=== PATIENT | female | born 1970 | race American Indian/Alaskan Native ===

== ENCOUNTER → 2017-06-29 | Outpatient (CLI) | payer BC, OTHER ==
[~2017-06-29] MED LIST: ASPI-587 PO; CATHETER FLUSH 10 ML SYR IV PRN; CELE50CA PO; CIPR500T78 PO; CTLP20T PO; CYCL10TA45 PO; CYCL10TA9 PO; DICL50TA6 PO; ESTR1TAB24 PO; HYDR-757 PO; HYDR25TA4 PO; HYOS0.1216 PO; IOHEXOL 350 MG/ML 100 ML (OMNIPAQUE 350) VIAL IV ONE; LISI10TA2 PO; NITR100C3 PO; NS 100 ML (IVPB) BAG IV ONE; PHEN200T27 PO; POTA15TA9 PO; PRD20T PO; SERT50TA2 PO; TRIA1CAP4 PO
--- NOTE | 2017-06-29 20:11 | Diagnostic Imaging Report ---
PROCEDURE: CT chest, abdomen, and pelvis with and without contrast. TECHNIQUE: Precontrast images were obtained of the chest, abdomen, and pelvis. Multiple contiguous axial images were obtained through the chest, abdomen, and pelvis after administration of intravenous contrast. INDICATION: Back pain. History of stones. Lung nodule. 100 mL of Omnipaque 350 is administered intravenously. Comparison CT abdomen and pelvis of 03/04/[address] chest of 09/20/2014. FINDINGS: CT chest: The lungs demonstrate no significant consolidation. There are pulmonary nodules up to 6 mm in the peripheral aspect. These appears to be stable from 2015 suggestive of benign etiology. No new nodule is identified. There is no mediastinal mass. There is no mediastinal or hilar or axillary significantly enlarged lymph nodes. The thoracic aorta is normal in caliber. The heart is normal. No pericardial or pleural effusion. The osseous structures appear grossly unremarkable. CT of the abdomen and pelvis: The liver, the spleen, the adrenal glands, and the pancreas appear unremarkable. Cholecystectomy clips are seen. The kidneys have symmetric enhancement and contrast excretion. The unenhanced phase demonstrate multiple nonobstructive stones up to 4 mm in size. No hydronephrosis. Hypodense lesion in the right kidney measuring 9 mm is noted. This is probably a cyst and demonstrate no significant change from 2015. There is no bowel obstruction. No significant free fluid or fluid collection in the abdomen or pelvis is identified. The appendix is normal. There is suggestion of prior hysterectomy. The osseous structures appear grossly unremarkable. IMPRESSION: CT chest: Stable pulmonary nodules up to 6 mm in size in the left lung base without change from 2015 suggestive of scarring. No acute process. CT abdomen and pelvis: Nonobstructive stones in the right kidney up to 4 mm in size. No hydronephrosis. Dictated by: Dictated on workstation # [id number]
== END ==
LOC: RAD 16:24
PROVIDERS: ATTEND Urology
DX: R91.8 Other nonspecific abnormal finding of lung field (principal); N20.0 Calculus of kidney; M54.9 Dorsalgia, unspecified; Z90.49 Acquired absence of other specified parts of digestive tract
CPT/HCPCS: 71270; 74178

== ENCOUNTER 2017-07-22 05:40 | Outpatient (CLI) | payer OTHER ==
[~2017-07-22] VITALS: Ht 154.9 cm; Wt 90.7 kg
[~2017-07-22 05:40] MED LIST changes: -CATHETER FLUSH 10 ML SYR IV PRN; -IOHEXOL 350 MG/ML 100 ML (OMNIPAQUE 350) VIAL IV ONE; -NS 100 ML (IVPB) BAG IV ONE
[2017-07-22] MEDS ORDERED: HYDR25TA4 PO (11:02)
[2017-07-22] MEDS ORDERED: LISI10TA2 PO (11:02)
[2017-07-22] MEDS ORDERED: POTA15TA PO (11:02)
== END 2017-07-22 11:12 ==
LOC: PREOP 05:40
PROVIDERS: ATTEND Urology
DX: Z01.818 Encounter for other preprocedural examination (principal); R32 Unspecified urinary incontinence; N32.81 Overactive bladder

== ENCOUNTER 2017-07-29 05:49 | Day surgery (SDC) | payer OTHER ==
[~2017-07-29] VITALS: Ht 154.9 cm; Wt 90.7 kg
[~2017-07-29 05:49] MED LIST changes: +POTA15TA PO
--- OUTSIDE RECORDS SUMMARY | 2017-07-29 05:53 | XMS REPORT ---
Author Author HUI ARAYA Organization [employer] Address Unknown Phone Unavailable Care Team Providers Care Aircraft Engine Cylinder Mechanic Name Role Phone HUI ARAYA CP Unavailable Allergies No Known Allergies Problems Problem Type Condition Code Onset Dates Condition Status Problem Dysthymic disorder 300.4 Active Problem Essential hypertension, benign 401.1 Active Problem Unspecified myalgia and myositis 729.1 Active Medications Medication Code System Code Instructions Start Date End Date Status Dosage IBU NDC 0 800 MG Orally Three times a day prn October 30, 2014 1 tablet Results No Known Results Summary Purpose [employer]ClinicalWorks Submission
--- OUTSIDE RECORDS SUMMARY | 2017-07-29 05:53 | XMS REPORT ---
Author Author HUI ARAYA Organization [employer] Address Unknown Phone Unavailable Care Team Providers Care Truck Mechanic Name Role Phone HUI ARAYA CP Unavailable Allergies No Known Allergies Problems Problem Type Condition Code Onset Dates Condition Status Problem Dysthymia F34.1 Active Problem Unspecified myalgia and myositis 729.1 Active Problem Essential hypertension I10 Active Assessment Essential hypertension I10 Active Problem Dysthymic disorder 300.4 Active Problem Essential hypertension, benign 401.1 Active Medications No Known Medications Procedures Procedure Coding System Code Date COMPLETE CBC W/AUTO DIFF WBC CPT-4 77944 Aug 16, 2015 LIPID PANEL CPT-4 44053 Aug 16, 2015 ASSAY THYROID STIM HORMONE CPT-4 29278 Aug 16, 2015 VENIPUNCT, ROUTINE* CPT-4 75057 Aug 16, 2015 COMPREHEN METABOLIC PANEL CPT-4 20301 Aug 16, 2015 Results Name Result Date Reference Range Unit Abnormality Flag ROUTINE VENIPUNCTURE Summary Purpose eClinicalWorks Submission
--- OUTSIDE RECORDS SUMMARY | 2017-07-29 05:53 | XMS REPORT ---
Author Author HUI ARAYA Organization [employer] Address Unknown Phone Unavailable Care Team Providers Care Poultryman Name Role Phone HUI ARAYA CP Unavailable Allergies No Known Allergies Problems Problem Type Condition ICD-9 Code Onset Dates Condition Status Problem Dysthymic disorder 300.4 Active Problem Essential hypertension, benign 401.1 Active Problem Unspecified myalgia and myositis 729.1 Active Medications Medication Code System Code Instructions Start Date End Date Status Dosage Sertraline HCl NDC [address]-29 50 MG Orally Once a day Mar 09, 2015 1 tablet IBU NDC 0 800 MG Orally Three times a day prn October 30, 2014 1 tablet Results No Known Results Summary Purpose eClinicalWorks Submission
--- OUTSIDE RECORDS SUMMARY | 2017-07-29 05:53 | XMS REPORT ---
Author Author HUI ARAYA Organization [employer] Address Unknown Phone Unavailable Care Team Providers Care Pineapple Plantation Manager Name Role Phone HUI ARAYA CP Unavailable Allergies No Known Allergies Problems Problem Type Condition Code Onset Dates Condition Status Problem Dysthymia F34.1 Active Problem Unspecified myalgia and myositis 729.1 Active Problem Essential hypertension I10 Active Assessment Elevated liver function tests R79.89 Active Problem Dysthymic disorder 300.4 Active Problem Essential hypertension, benign 401.1 Active Medications No Known Medications Results No Known Results Summary Purpose eClinicalWorks Submission
--- OUTSIDE RECORDS SUMMARY | 2017-07-29 05:53 | XMS REPORT ---
Author Author HUI ARAYA [facility] Address [address] [place] [address] Care Team Providers Care Homicide Detective Name Role Phone ARAYA, HUI Unavailable PROBLEMS Type Condition ICD9-CM Code [id number] Code Onset Dates Condition Status SNOMED Code Problem Essential hypertension, benign 401.1 Active 1098227 Problem Unspecified myalgia and myositis 729.1 Active 983962427 Problem Back spasm M62.830 Active 264511751 Problem Arthritis M19.90 Active 4897966 Problem Essential hypertension I10 Active 46487939 Problem Dysthymic disorder 300.4 Active 17161658 Problem Mixed hyperlipidemia E78.2 Active 767820094 Problem Dysthymia F34.1 Active 33995998 ALLERGIES No Known Allergies SOCIAL HISTORY No smoking Hx information available PLAN OF CARE VITAL SIGNS MEDICATIONS Medication Instructions Dosage Frequency Start Date End Date Duration Status Sertraline HCl 50 mg Orally Once a day. NEEDS APPT BEFORE ANY FURTHER REFILLS 1 tablet Feb, 0 days Active Lisinopril 10 mg Orally Once a day. NEEDS APPT BEFORE ANY FURTHER REFILLS take 1 tablet 0 days Active Estrace 1 MG Orally Once a day. NEEDS APPT BEFORE ANY FURTHER REFILLS 1 tablet 0 days Active RESULTS No Results PROCEDURES No Known procedures IMMUNIZATIONS No Known Immunizations
--- OUTSIDE RECORDS SUMMARY | 2017-07-29 05:53 | XMS REPORT ---
Author Author HUI ARAYA Organization [employer] Address Unknown Phone Unavailable Care Team Providers Care Dental Services Director Name Role Phone HUI ARAYA CP Unavailable Allergies No Known Allergies Problems Problem Type Condition Code Onset Dates Condition Status Problem Dysthymic disorder 300.4 Active Problem Essential hypertension, benign 401.1 Active Problem Unspecified myalgia and myositis 729.1 Active Assessment Essential hypertension, benign 401.1 Active Medications Medication Code System Code Instructions Start Date End Date Status Dosage Lisinopril [facility] [place] [address]-63 10 MG Orally Once a day. NEED APPT PRIOR TO FURTHER REFILLS take 1 tablet Sertraline HCl [facility] [place] [address]-94 50 MG Orally Once a day. NEED APPT PRIOR TO FURTHER REFILLS Mar 09, 2015 1 tablet Estrace [facility] [place] [address]-93 1 MG Orally Once a day. NEED APPT PRIOR TO FURTHER REFILLS 1 tablet Results No Known Results Summary Purpose [employer] Submission
--- OUTSIDE RECORDS SUMMARY | 2017-07-29 05:53 | XMS REPORT ---
Author Author HUI ARAYA Organization [employer] Address Unknown Phone Unavailable Care Team Providers Care Hand Filer Balance Wheel Name Role Phone HUI ARAYA CP Unavailable Allergies, Adverse Reactions, Alerts Substance Reaction Event Type Benadryl Info Not Available Drug Allergy Problems Problem Type Condition Code Onset Dates Condition Status Problem Dysthymia F34.1 Active Problem Unspecified myalgia and myositis 729.1 Active Problem Essential hypertension I10 Active Assessment Essential hypertension I10 Active Assessment Dysthymia F34.1 Active Problem Dysthymic disorder 300.4 Active Problem Essential hypertension, benign 401.1 Active Medications Medication Code System Code Instructions Start Date End Date Status Dosage Lisinopril [facility] [address]-28 10 MG Orally Once a day. take 1 tablet Potassium Citrate NDC 0 15 mEq oral 2 times a day 2 tab Sertraline HCl [facility] [address]-86 50 MG Orally Once a day. Mar 09, 2015 1 tablet IBU NDC 0 800 MG Orally Three times a day prn October 30, 2014 1 tablet Estrace [facility] [address]-18 1 MG Orally Once a day. NEED APPT PRIOR TO FURTHER REFILLS 1 tablet Hydrochlorothiazide [facility] [address]-94 25 MG Orally Once a day 1 tablet Procedures Procedure Coding System Code Date Office Visit, Est Pt., Level 3 CPT-4 30668 Aug 14, 2015 Vital Signs Date/Time: Aug 14, 2015 Temperature 96.8 F Weight 201.0 lbs Height 61.5 in BMI 37.36 Index Blood Pressure Diastolic 72 mmHg Blood Pressure Systolic 112 mmHg Cardiac Monitoring Heart Rate 60 bpm Results No Known Results Summary Purpose eClinicalWorks Submission
--- OUTSIDE RECORDS SUMMARY | 2017-07-29 05:53 | XMS REPORT ---
Author Author HUI ARAYA Organization [employer] Address Unknown Phone Unavailable Care Team Providers Care Auto Body Service Mechanic Name Role Phone HUI ARAYA CP Unavailable Allergies No Known Allergies Problems Problem Type Condition Code Onset Dates Condition Status Problem Dysthymic disorder 300.4 Active Problem Essential hypertension, benign 401.1 Active Problem Unspecified myalgia and myositis 729.1 Active Medications Medication Code System Code Instructions Start Date End Date Status Dosage Estrace [facility] [address]-95 1 MG Orally Once a day. NEED APPT PRIOR TO FURTHER REFILLS 1 tablet Lisinopril [facility] [address]-79 10 MG Orally Once a day. NEED APPT PRIOR TO FURTHER REFILLS take 1 tablet Results No Known Results Summary Purpose eClinicalWorks Submission
--- OUTSIDE RECORDS SUMMARY | 2017-07-29 05:53 | XMS REPORT | Continuity of Care Document ---
Author Author [facility] Address Unknown Phone Unavailable Allergies Active Description Code Type Severity Reaction Onset Reported/Identified Relationship to Patient Clinical Status Yes Benadryl Drug Allergy N/A N/A 06/01/2014 Yes diphenhydramine [id number] Drug Allergy Mild N/A 07/22/2017 Medications There is no data. Problems Date Dx Coded Attending Type Code Diagnosis Diagnosed By 01/19/2008 HUI ARAYA APRN V05.3 HEPATITIS VIRAL/ALL 01/19/2008 ARAYA HUI GOMEZ V05.3 HEPATITIS VIRAL/ALL 01/19/2008 ARAYA HUI GOMEZ V05.3 HEPATITIS VIRAL/ALL 11/20/2008 HUI ARAYA APRN R 278.00 OBESITY 11/20/2008 ARAYA HUI GOMEZ R 466.0 ACUTE BRONCHITIS 11/20/2008 ARAYA HUI GOMEZ 780.60 fever [as symptom] 11/20/2008 ARAYA HUI GOMEZ R 786.2 cough 11/20/2008 ARAYA HUI GOMEZ R 278.00 OBESITY 11/20/2008 ARAYA HUI GOMEZ R 466.0 ACUTE BRONCHITIS 11/20/2008 ARAYA HUI GOMEZ 780.60 fever [as symptom] 11/20/2008 ARAYA HUI GOMEZ R 786.2 cough 11/20/2008 ARAYA HUI GOMEZ R 278.00 OBESITY 11/20/2008 ARAYA HUI GOMEZ R 466.0 ACUTE BRONCHITIS 11/20/2008 ARAYA HUI GOMEZ R 780.60 fever [as symptom] 11/20/2008 ARAYA HUI GOMEZ R 786.2 cough 01/24/2009 ARAYA HUI GOMEZ 911.4 INSECT BITE NONVENOMOUS OF TRUNK WITHOUT INFECTION 01/24/2009 ARAYA HUI GOMEZ 911.4 INSECT BITE NONVENOMOUS OF TRUNK WITHOUT INFECTION 01/24/2009 HUI ARAYA APRN R 911.4 INSECT BITE NONVENOMOUS OF TRUNK WITHOUT INFECTION 04/09/2014 CANDELARIO DOWNS APRN Ot 592.0 CALCULUS OF KIDNEY 04/11/2014 ETHAN NAPOLES MD Ot 592.0 CALCULUS OF KIDNEY 04/11/2014 ETHAN NAPOLES MD Ot 592.1 CALCULUS OF URETER 04/26/2014 ETHAN NAPOLES MD Ot 592.1 CALCULUS OF URETER 04/26/2014 ETHAN NAPOLES MD Ot V74.8 SCREEN-BACTERIAL DIS NEC 06/01/2014 HUI ARAYA APRN R 300.4 DYSTHYMIC DISORDER 06/01/2014 HUI ARAYA APRN R 401.1 HYPERTENSION, BENIGN ESSENTIAL 06/01/2014 HUI ARAYA APRN R 300.4 DYSTHYMIC DISORDER 06/01/2014 HUI ARAYA APRN R 401.1 HYPERTENSION, BENIGN ESSENTIAL 06/07/2014 ETHAN NAPOLES MD Ot 592.1 06/07/2014 ETHAN NAPOLES MD Ot V67.09 08/28/2014 HUI ARAYA APRN R 729.1 MYALGIA AND MYOSITIS UNSPECIFIED 10/05/2014 Ot 793.19 10/25/2014 CANDELARIO DOWNS APRN Ot 789.00 ABDOMINAL PAIN, UNSPECIFIED SITE 10/25/2014 CANDELARIO DOWNS APRN Ot 848.8 SPRAIN NEC 10/25/2014 CANDELARIO DOWNS APRN Ot E000.8 OTHER EXTERNAL CAUSE STATUS 10/25/2014 CANDELARIO DOWNS APRN Ot E928.9 ACCIDENT NOS 10/25/2014 Ot 793.19 10/30/2014 Ot 793.19 03/04/2016 TERRA FOWLER Ot M54.5 LOW BACK PAIN 03/04/2016 Ot 793.19 OTHER NONSPECIFIC ABNORMAL FINDING OF DEB 03/05/2016 TERRA FOWLER Ot M54.5 LOW BACK PAIN 04/03/2016 Ot 793.19 OTHER NONSPECIFIC ABNORMAL FINDING OF DEB 06/26/2017 ETHAN NAPOLES MD Ot 592.9 URINARY CALCULUS NOS 06/26/2017 ETHAN NAPOLES MD Ot 592.0 CALCULUS OF KIDNEY 06/26/2017 ETHAN NAPOLES MD Ot 592.1 CALCULUS OF URETER 06/26/2017 ETHAN NAPOLES MD, Ot V72.63 PRE-PROCEDURAL LABORATORY EXAMINATION 06/26/2017 ETHAN NAPOLES MD, Ot V72.81 [id number] CARDIOVASCULAR 06/26/2017 ETHAN NAPOLES MD Ot V74.8 SCREEN-BACTERIAL DIS NEC 06/26/2017 ETHAN NAPOLES MD Ot 592.0 CALCULUS OF KIDNEY 06/26/2017 ETHAN NAPOLES MD, Ot V72.84 EXAM PRE-OPERATIVE NOS 06/26/2017 ETHAN NAPOLES MD Ot 793.19 OTHER NONSPECIFIC ABNORMAL FINDING OF DEB 06/26/2017 ETHAN NAPOLES MD Ot 592.0 CALCULUS OF KIDNEY 06/26/2017 ETHAN NAPOLES MD Ot 592.1 CALCULUS OF URETER 06/26/2017 ETHAN NAPOLES MD Ot V45.89 POSTSURGICAL STATES NEC 06/26/2017 ETHAN NAPOLES MD Ot 571.8 CHRONIC LIVER DIS NEC 06/26/2017 ETHAN NAPOLES MD Ot 592.0 CALCULUS OF KIDNEY 06/26/2017 ETHAN NAPOLES MD Ot 793.11 SOLITARY PULMONARY NODULE 06/26/2017 ETHAN NAPOLES MD Ot 592.1 CALCULUS OF URETER 06/26/2017 ETHAN NAPOLES MD Ot V67.09 SURGERY FOLLOW-UP, OTHER SURGERY Procedures There is no data. Results Test Result Range Complete urinalysis with reflex to culture - 03/04/16 14:15 Urine color determination YELLOW NRG Urine clarity determination CLEAR NRG Urine pH measurement by test strip 7 5-9 Specific gravity of urine by test strip 1.015 1.016- 1.022 Urine protein assay by test strip, semi-quantitative NEGATIVE NEGATIVE Urine glucose detection by automated test strip NEGATIVE NEGATIVE Erythrocytes detection in urine sediment by light microscopy NEGATIVE NEGATIVE Urine ketones detection by automated test strip NEGATIVE NEGATIVE Urine nitrite detection by test strip NEGATIVE NEGATIVE Urine total bilirubin detection by test strip NEGATIVE NEGATIVE Urine urobilinogen measurement by automated test strip (mass/volume) NORMAL NORMAL Urine leukocyte esterase detection by dipstick 1+ NEGATIVE Automated urine sediment erythrocyte count by microscopy (number/high power field) RARE NRG Automated urine sediment leukocyte count by microscopy (number/high power field ) RARE NRG Bacteria detection in urine sediment by light microscopy FEW NRG Squamous epithelial cells detection in urine sediment by light microscopy >50 NRG Crystals detection in urine sediment by light microscopy NONE NRG Casts detection in urine sediment by light microscopy NONE NRG Mucus detection in urine sediment by light microscopy NEGATIVE NRG Complete urinalysis with reflex to culture NO NRG Complete blood count (CBC) with automated white blood cell (WBC) differential - 03/04/16 14:45 Blood leukocytes automated count (number/volume) 7.0 10*3/uL 4.3-11.0 Blood erythrocytes automated count (number/volume) 4.26 10*6/uL 4.35-5.85 Venous blood hemoglobin measurement (mass/volume) 13.4 g/dL 11.5-16.0 Blood hematocrit (volume fraction) 41 % 35-52 Automated erythrocyte mean corpuscular volume 96 [foz_us] 80-99 Automated erythrocyte mean corpuscular hemoglobin (mass per erythrocyte) 32 pg 25-34 Automated erythrocyte mean corpuscular hemoglobin concentration measurement ( mass/volume) 33 g/dL 32-36 Automated erythrocyte distribution width ratio 13.2 % 10.0-14.5 Automated blood platelet count (count/volume) 264 10*3/uL 130-400 Automated blood platelet mean volume measurement 11.2 [foz_us] 7.4-10.4 Automated blood neutrophils/100 leukocytes 60 % 42-75 Automated blood lymphocytes/100 leukocytes 31 % 12-44 Blood monocytes/100 leukocytes 7 % 0-12 Automated blood eosinophils/100 leukocytes 1 % 0-10 Automated blood basophils/100 leukocytes 1 % 0-10 Blood neutrophils automated count (number/volume) 4.2 10*3 1.8-7.8 Blood lymphocytes automated count (number/volume) 2.2 10*3 1.0-4.0 Blood monocytes automated count (number/volume) 0.5 10*3 0.0-1.0 Automated eosinophil count 0.1 10*3/uL 0.0-0.3 Automated blood basophil count (count/volume) 0.1 10*3/uL 0.0-0.1 Comprehensive metabolic panel - 03/04/16 14:45 Serum or plasma sodium measurement (moles/volume) 136 mmol/L 135-145 Serum or plasma potassium measurement (moles/volume) 3.6 mmol/L 3.6-5.0 Serum or plasma chloride measurement (moles/volume) 101 mmol/L 98-107 Carbon dioxide 24 mmol/L 21-32 Serum or plasma anion gap determination (moles/volume) 11 mmol/L 5-14 Serum or plasma urea nitrogen measurement (mass/volume) 14 mg/dL 7-18 Serum or plasma creatinine measurement (mass/volume) 0.82 mg/dL 0.60-1.30 Serum or plasma urea nitrogen/creatinine mass ratio 17 NRG Serum or plasma creatinine measurement with calculation of estimated glomerular filtration rate > NRG Serum or plasma glucose measurement (mass/volume) 149 mg/dL 70-105 Serum or plasma calcium measurement (mass/volume) 9.7 mg/dL 8.5-10.1 Serum or plasma total bilirubin measurement (mass/volume) 0.3 mg/dL 0.1-1.0 Serum or plasma alkaline phosphatase measurement (enzymatic activity/volume) 69 U/L 40-136 Serum or plasma aspartate aminotransferase measurement (enzymatic activity/ volume) 43 U/L 5-34 Serum or plasma alanine aminotransferase measurement (enzymatic activity/volume ) 72 U/L 0-55 Serum or plasma protein measurement (mass/volume) 7.0 g/dL 6.4-8.2 Serum or plasma albumin measurement (mass/volume) 4.2 g/dL 3.2-4.5 Encounters ACCT No. Visit Date/Time Discharge Status Pt. Type Provider Facility Loc./Unit Complaint [id number] 08/28/2014 14:41:00 08/28/2014 23:59:59 [facility] Outpatient HUI ARAYA APRN [id number] 06/01/2014 15:03:00 06/01/2014 23:59:59 [facility] Out[facility] HUI ARAYA APRN [id number] 01/24/2009 09:48:00 01/24/2009 23:59:59 [facility] Outpatient HUI ARAYA APRN [id number] 07/22/2017 05:40:00 07/22/2017 11:12:00 DIS Outpatient DONY CABRERA, ETHAN [facility] PREOP MIXED INCONTINENCE, OVERACTIVE BLADDER [id number] 06/29/2017 16:24:00 06/29/2017 23:59:59 C[facility] Outpatient ETHAN NAPOLES MD [facility] RAD H/O STONES,BACK PAIN [id number] 03/04/2016 13:49:00 03/04/2016 16:43:00 DIS Emergency TERRA FOWLER [facility] ER LOW BACK PAIN/NAUSEA [id number] 10/25/2014 13:32:00 10/25/2014 15:45:00 DIS Emergency CANDELARIO DOWNS APRN [facility] ER LEFT SIDED PAIN, HX OF STONES [id number] 05/16/2014 14:01:00 05/16/2014 23:59:59 CLS Outpatient ETHAN NAPOLES MD [facility] RAD RT URETER STONE [id number] 05/05/2014 11:27:00 05/05/2014 23:59:59 CLS Outpatient ETHAN NAPOLES MD [facility] RAD LT FLANK PAIN [id number] 04/26/2014 06:08:00 04/26/2014 11:25:00 DIS Outpatient ETHAN NAPOLES MD [facility] SD RIGHT URETERAL STONE [id number] 04/25/2014 07:23:00 04/25/2014 23:59:59 CLS Outpatient ETHAN NAPOLES MD [facility] PREOP RIGHT URETERAL STONE [id number] 04/24/2014 13:57:00 04/24/2014 23:59:59 CLS Outpatient ETHAN NAPOLES MD [facility] RAD STONES [id number] 04/14/2014 12:14:00 04/14/2014 23:59:59 CLS Outpatient ETHAN NAPOLES MD [facility] RAD CHEST LEISON [id number] 04/11/2014 08:16:00 04/11/2014 13:40:00 DIS Outpatient ETHAN NAPOLES MD [facility] RIGHT RENAL AND URETERAL STONES [id number] 04/10/2014 14:20:00 04/10/2014 23:59:59 CLS Outpatient ETHAN NAPOLES MD [facility] PREOP RIGHT RENAL AND URETERAL STONES [id number] 04/10/2014 12:19:00 04/10/2014 23:59:59 CLS Outpatient ETHAN NAPOLES MD [facility] RAD STONES [id number] 04/09/2014 15:44:00 04/09/2014 18:01:00 DIS Emergency CANDELARIO DOWNS COMMERCIAL LINES ACCOUNT ASSISTANT [facility] ER KIDNEY STONE [id number] 07/29/2017 08:00:00 PEN Preadmit ETHAN NAPOLES MD [facility] SDC MIXED INCONTINENCE, OVERACTIVE BLADDER,ISD [id number] 09/20/2014 10:21:00 Document Registration
[2017-07-29] MEDS ORDERED: cefTRIAXone 1 GM (ROCEPHIN) VIAL ONE (06:36)
[2017-07-29] MEDS ORDERED: FAMOTIDINE 20MG/2ML IV (PEPCID) ONE (06:36)
[2017-07-29] MEDS ORDERED: NS (IVPB) 50 ML ONE (06:36)
[2017-07-29] MEDS ORDERED: ONDANSETRON 4 MG/2 ML (SDV) Z0FRAN ONE (06:56)
[2017-07-29] MEDS ORDERED: proPOfol 200 MG/20 ML (DIPRIVAN) VIAL IV ONE (06:56)
[2017-07-29] MEDS ORDERED: SEVOFLURANE (ULTANE) 15 ML INHAL SOLN ONE ×3 (06:56→08:28)
[2017-07-29] MEDS ORDERED: DEXAMETHASONE 10 MG/ML (DECADRON) 1 ML VIAL ONE (06:56)
[2017-07-29] MEDS ORDERED: LIDOCAINE PF 2% 5 ML (XYLOCAINE) VIAL ONE (06:56)
[2017-07-29] MEDS ORDERED: MIDAZOLAM 2 MG/2 ML (VERSED) VIAL ONE (06:56)
[2017-07-29] MEDS ORDERED: fentaNYL INJECTION 100 MCG/2 ML AMP ONE (06:56)
[2017-07-29] MEDS ORDERED: LACTATED RINGERS 1,000 ML IV PRN (06:57)
[2017-07-29] MEDS ORDERED: FAMOTIDINE 20MG/2ML IV (PEPCID) IV ONE (07:00)
[2017-07-29] MEDS ORDERED: cefTRIAXone 1 GM/NS 50 ML IVPB IV ONE ×2 (07:00)
[2017-07-29] MEDS ORDERED: CYCL5TAB PO (07:00)
[2017-07-29] MEDS ORDERED: CATHETER FLUSH 10 ML SYR IV PRN (07:00)
[2017-07-29] MEDS ORDERED: ESTRADIOL VAGINAL CREAM 42.5 GM (ESTRACE) VG ONE (07:08)
[2017-07-29] MEDS ORDERED: LIDOCAINE/EPI 1%-1:200,000 (XYLOCAINE) 10 ML VIAL ONE (07:08)
[2017-07-29 07:10] VITALS: BP 123/79
--- NOTE | 2017-07-29 07:12 | Progress Note-Pre Operative ---
Pre-Operative Progress Note H&P Reviewed The H&P was reviewed, patient examined and no changes noted. Date Seen by Provider: Jul 29, 2017 Time Seen by Provider: 07:10 Date H&P Reviewed: Jul 29, 2017 Time H&P Reviewed: 07:10 Pre-Operative Diagnosis: MIXED INCONTINENCE, CYSTOCELE, OAB, ISD ETHAN NAPOLES MD Jul 29, 2017 7:12 am
--- NOTE | 2017-07-29 07:13 | Progress Note-Post Operative ---
Post-Operative Progess Note Surgeon (s)/Chemistry Intern (s) Surgeon ETHAN NAPOLES MD Chemistry Intern: N/A Pre-Operative Diagnosis MIXED INCONTINENCE, CYSTOCELE, OAB, ISD Post-Operative Diagnosis SAME Procedure & Operative Findings Date of Procedure 07/29/17 Procedure Performed/Findings ANTERIOR REPAIR, PVS, AND CYSTOSCOPY Anesthesia Type GENERAL Estimated Blood Loss Estimated blood loss (mL): LESS THAN 50CC Specimens/Packing Specimens Removed N/A Packing: ESTRACE VAGINAL PACK ETHAN NAPOLES MD Jul 29, 2017 7:13 am
[2017-07-29] MEDS ORDERED: CYCLOBENZAPRINE HCL 5 MG PO PRN (07:15)
[2017-07-29] MEDS ORDERED: morphine INJ 10 MG/ML 1ML (SYR OR VIAL) ONE (08:30)
[2017-07-29] MEDS: KETOROLAC 30 MG/ML VIAL IV PRN ×3 (08:34→23:30)
[2017-07-29] MEDS ORDERED: ONDANSETRON 4 MG/2 ML (SDV) Z0FRAN IVP PRN (08:45)
[2017-07-29] MEDS ORDERED: HYDROmorphone (DILAUDID) 2 MG/ML VIAL IVP PRN (08:45)
[2017-07-29] MEDS: morphine INJ 10 MG/ML 1ML (SYR OR VIAL) IVP PRN ×2 (08:47→08:52)
[2017-07-29] MEDS ORDERED: lisINopril 10 MG (PRINIVIL) TAB PO SCH (09:00)
[2017-07-29] MEDS ORDERED: SERTRALINE 50 MG (ZOLOFT) TABLET PO SCH (09:00)
[2017-07-29] MEDS ORDERED: HYDROCHLOROTHIAZIDE 25 MG (HCTZ) TAB PO SCH (09:00)
[2017-07-29 09:44] VITALS: BP 118/78
[2017-07-29] MEDS: LACTATED RINGERS 1,000 ML IV SCH ×2 (09:57→20:15)
[2017-07-29] MEDS ORDERED: PATIENT MAY USE OWN MEDS, ALL MC SCH (10:00)
[2017-07-29] MEDS ORDERED: NICOTINE 21 MG (NICODERM) PATCH TD NR (11:30)
[2017-07-29 11:57] VITALS: BP 111/69
[2017-07-29] MEDS: HYDROcodone/APAP 10 MG/325 MG (LORTAB) TAB PO PRN ×2 (12:22→18:55)
--- NOTE | 2017-07-29 14:24 | OPERATIVE REPORT ---
DATE OF SERVICE: 07/29/2017 PREOPERATIVE DIAGNOSES: Mixed urinary incontinence with cystocele, overactive bladder and intrinsic sphincter deficiency. POSTOPERATIVE DIAGNOSES: Mixed urinary incontinence with cystocele, overactive bladder and intrinsic sphincter deficiency. OPERATION PERFORMED: Anterior repair, pubovaginal sling and cystoscopy. SURGEON: Kiran Napoles MD ANESTHESIA: General. COMPLICATIONS: None. DESCRIPTION OF PROCEDURE: Under satisfactory general anesthesia, the patient in extended lithotomy position, genitalia were prepped and draped in the usual sterile fashion with a separate vaginal prep. Caro catheter was inserted draining clear urine. The anterior vaginal wall was infiltrated with lidocaine and epinephrine and a midline incision was made and the mucosa was dissected off the underlying fascia. Dissection was carried through the pubic arch. The fascia was approximated with interrupted 2-0 Vicryl to give excellent support to the bladder and the Solyx device, pubovaginal sling was passed on both sides using the described technique. The sling was sitting nicely under the mid urethra with no tension, no twist and passage of a curved hemostat easily between it and the underlying tissue. I removed the Caro catheter to perform cystoscopy to confirm the integrity of the bladder, ureters, urethra with no foreign bodies. I left the bladder half full to perform a manual Valsalva maneuver. After removing the scope, it was negative. The Caro was reinserted, draining clear fluid again; the excess vaginal mucosa was excised sharply and then the mucosa was approximated with a running 2-0 Vicryl. An Estrace vaginal pack was inserted. Estimated blood loss was less than 50 mL, none of which was replaced. Needle, sponge and instrument counts correct x2. The patient tolerated the procedure and anesthesia well and was sent to recovery room in stable condition. Job ID: [id number] DocumentID: [id number] Dictated Date: 07/29/2017 08:29:25 Reagent Tender Helper Date: 07/29/2017 14:23:36 Dictated By: KIRAN NAPOLES MD
[2017-07-29 16:40] VITALS: BP 99/62
[2017-07-29 20:00] VITALS: BP 112/56
[2017-07-29] MEDS ORDERED: LACTATED RINGERS 1,000 ML IV ONE (20:11)
[2017-07-29 23:38] VITALS: BP 104/59
[2017-07-30 04:50] VITALS: BP 106/63
[2017-07-30] MEDS ORDERED: LEVOFLOXACIN 250 MG/50 ML IVPB 50 ML IV SCH (07:13)
[2017-07-30 07:39] VITALS: BP 107/57
[2017-07-30] MEDS: KETOROLAC 30 MG/ML VIAL IV PRN (07:46)
[2017-07-30] MEDS: HYDROcodone/APAP 10 MG/325 MG (LORTAB) TAB PO PRN (08:18)
--- NOTE | 2017-07-30 10:44 | Progress Note-Urology ---
Progress Note-Urology Progress Notes/Assess & Plan Progress/Assessment & Plan DOING VERY WELL. VOIDING WELL. PVR 45CC. DRY. HAPPY Final Diagnosis INCONTINENCE AND CYSTOCELE ETHAN NAPOLES MD Jul 30, 2017 10:44 am
--- NOTE | 2017-07-30 10:45 | Discharge Inst-Urology ---
Discharge Inst-Urology Discharge Medications New, Converted, or Re-newed RX: Call to Patient Pharmacy Patient Instructions/Follow Up Plan Please make appointment to been seen in office in 2 weeks, rest till then Keep bowels soft and moving Showers, no bath Increase oral fluids for 48 hours and then as needed. Diet and Activity as tolerated. If questions or concerns contact your physician Or seek help at emergency department. ETHAN NAPOLES MD Jul 30, 2017 10:45 am
== END 2017-07-30 11:15 | disposition home or self-care (01) ==
LOC: SDC 05:49 → WS 09:33 → SDC 07-30 11:15
PROVIDERS: ATTEND Urology
DX: N36.42 Intrinsic sphincter deficiency (ISD) (principal); N32.81 Overactive bladder; N39.46 Mixed incontinence; N81.10 Cystocele, unspecified; Z11.2 Encounter for screening for other bacterial diseases; I10 Essential (primary) hypertension; F32.9 Major depressive disorder, single episode, unspecified; F41.9 Anxiety disorder, unspecified; G47.33 Obstructive sleep apnea (adult) (pediatric); F17.210 Nicotine dependence, cigarettes, uncomplicated; Z87.442 Personal history of urinary calculi; K21.9 Gastro-esophageal reflux disease without esophagitis; E66.9 Obesity, unspecified; Z68.37 Body mass index [BMI] 37.0-37.9, adult; Z79.899 Other long term (current) drug therapy
CPT/HCPCS: 87081; 94664

== ENCOUNTER 2018-10-08 08:25 | Emergency (ER) | payer OTHER ==
[~2018-10-08] VITALS: Ht 154.9 cm; Wt 95.3 kg
[~2018-10-08 08:25] MED LIST changes: +CYCL5TAB PO
--- OUTSIDE RECORDS SUMMARY | 2018-10-08 08:33 | XMS REPORT ---
Author Author HUI ARAYA [facility] Address [address] [place] [address] Care Team Providers Care Technical Communicator Name Role Phone HUI ARAYA Unavailable PROBLEMS Type Condition ICD9-CM Code IFF05-AM Code Onset Dates Condition Status SNOMED Code Problem Essential hypertension I10 Active 42966066 Problem Abnormal liver enzymes R74.8 Active 425335845 Problem Type 2 diabetes mellitus without complication, without long-term current use of insulin E11.9 Active 763050227 Problem Arthritis M19.90 Active 3688755 Problem Dysthymia F34.1 Active 05846464 Problem Back spasm M62.830 Active 210248331 Problem Mixed hyperlipidemia E78.2 Active 738903689 ALLERGIES No Information ENCOUNTERS Encounter Location Date Diagnosis [facility] [address] [id number] Jan, Type 2 diabetes mellitus without complication, without long-term current use of insulin E11.9 ; Essential hypertension I10 and Dysthymia F34.1 [facility] [id number] [place] [address] [id number] Dec, Dysthymia F34.1 [facility] [id number] [place] [address] [id number] November, Dysthymia F34.1 [facility] [address] [id number] Oct, Abnormal liver enzymes R74.8 ; Dysthymia F34.1 ; Essential hypertension I10 and Type 2 diabetes mellitus without complication, without long-term current use of insulin E11.9 [facility] [address] [id number] Oct, Dysthymia F34.1 [facility] [id number] [place] [address] [id number] Sep, Essential hypertension I10 [id number] [place] [address] [id number] Sep, Dysthymia F34.1 ; Type 2 diabetes mellitus without complication, without long-term current use of insulin E11.9 ; Essential hypertension I10 and Abnormal liver enzymes R74.8 [id number] [place] [address] [id number] Sep, Abnormal glucose R73.[address] [id number] Aug, Mixed hyperlipidemia E78.2 ; Essential hypertension I10 ; Dysthymia F34.1 ; Back spasm M62.830 ; Abnormal glucose R73.09 and Abnormal LFTs R94.[address] [id number] Aug, Essential hypertension I10 [address] [id number] Feb, Essential hypertension I10 ; Dysthymia F34.1 and Back spasm M62.830 [id number] [place] [address] [id number] November, Acute bilateral thoracic back pain M54.6 ; Dysthymia F34.1 and Essential hypertension I10 [id number] [place] [address] [id number] Jul, Essential hypertension I10 and Dysthymia F34.1 [id number] [place] [address] [id number] Sep, Essential hypertension I10 ; Dysthymia F34.1 ; Arthritis M19.90 ; Mixed hyperlipidemia E78.2 and Elevated liver enzymes R74.8 [id number] [place] [address] [id number] Aug, Elevated liver function tests R79.89 [address] [id number] [place] [address] [id number] Aug, Elevated liver function tests R79.89 [id number] [place] [address] [id number] Aug, Essential hypertension I10 [id number] [id number] Aug, Essential hypertension I10 and Dysthymia F34.1 [facility] [id number] [place] [id number] Jul, [facility] [address] [id number] [place] [id number] Jun, Essential hypertension, benign 401.1 [facility] [id number] [place] [address] [id number] Apr, [facility] [address] [id number] [place] [id number] Feb, [facility] [id number] [place] [address] [id number] Jan, [facility] [id number] [place] [address] [id number] Dec, Back pain 724.5 [facility] [id number] [place] [address] [id number] Oct, Dysthymic disorder 300.4 [facility] [id number] [place] [address] [id number] Oct, Back pain 724.5 ; Essential hypertension, benign 401.1 and Dysthymic disorder 300.4 [facility] [address] [place] [address]- 2846 Oct, [facility] [id number] [place] [address] 84372- 6142 Oct, [facility] [id number], [place] [id number] Sep, [facility] [address] [place] [address] 19893- 2255 Sep, [facility] [id number] [place] [address] [id number] Aug, [facility] [address] [place] [address]90- 5776 Aug, [facility] [id number] [place] [address] [id number] Jul, [facility] [address] [address] Jul, [facility] [address] [id number][place] [id number] Jul, [facility] [address] [address] Jul, [facility] [id number], [place] [id number] Jun, [facility] [address] [address] Jun, [facility] [address] [id number] May, [facility] [address] [address] May, [facility] [address] [address] Apr, [facility] [address] [address] Feb, [facility] [address] [id number] [id number] Feb, [facility] [address] [address] Jan, [facility] [address] [address] November, IMMUNIZATIONS No Known Immunizations SOCIAL HISTORY Never Assessed REASON FOR VISIT RX-Zoloft refill PLAN OF CARE VITAL SIGNS MEDICATIONS Medication Instructions Dosage Frequency Start Date End Date Duration Status Sertraline HCl 50 mg Orally Once a day. 2 tablet Active RESULTS No Results PROCEDURES No Known procedures INSTRUCTIONS MEDICATIONS ADMINISTERED No Known Medications MEDICAL (GENERAL) HISTORY Type Description Date Medical History hypertension Medical History depression Medical History kidney stones Surgical History cholecystectomy 1991 Surgical History 1989 Surgical History Lithotripsy 2013 Surgical History hysterectomy, total with bilateral salpingo-oophorectomy (BSO ) 2012 Surgical History bladder surgery 07/29/17 Hospitalization History childbirth, surgeries Hospitalization History urgent care for back spasms 10/27
--- OUTSIDE RECORDS SUMMARY | 2018-10-08 08:33 | XMS REPORT ---
Author Author HUI ARAYA [facility] Address [address] [place] [address] Care Team Providers Care Display Director Name Role Phone ARAYAHUI MONCADA Unavailable PROBLEMS Type Condition ICD9-CM Code EUO27-QZ Code Onset Dates Condition Status SNOMED Code Problem Essential hypertension I10 Active 38644906 Problem Abnormal liver enzymes R74.8 Active 311135526 Problem Type 2 diabetes mellitus without complication, without long-term current use of insulin E11.9 Active 826766809 Problem Arthritis M19.90 Active 3846886 Problem Dysthymia F34.1 Active 07572835 Problem Back spasm M62.830 Active 151248717 Problem Mixed hyperlipidemia E78.2 Active 566799471 ALLERGIES Substance Reaction Event Type Date Status Benadryl hives Drug Allergy Oct, Active ENCOUNTERS Encounter Location Date Diagnosis [facility] [address] [id number] Jan, Type 2 diabetes mellitus without complication, without long-term current use of insulin E11.9 ; Essential hypertension I10 and Dysthymia F34.1 [facility] [id number] [place] [address] [id number] Dec, Dysthymia F34.1 [facility] [address] [id number] November, Dysthymia F34.1 [facility] [id number] [place] [address] [id number] Oct, Abnormal liver enzymes R74.8 ; Dysthymia F34.1 ; Essential hypertension I10 and Type 2 diabetes mellitus without complication, without long-term current use of insulin E11.9 [facility] [id number] [place] [address] [id number] Oct, Dysthymia F34.[address] [id number] Sep, Essential hypertension I10 [id number] [place] [address] [id number] Sep, Dysthymia F34.1 ; Type 2 diabetes mellitus without complication, without long-term current use of insulin E11.9 ; Essential hypertension I10 and Abnormal liver enzymes R74.8 [id number] [place] [address] [id number] Sep, Abnormal glucose R73.[address] [id number] Aug, Mixed hyperlipidemia E78.2 ; Essential hypertension I10 ; Dysthymia F34.1 ; Back spasm M62.830 ; Abnormal glucose R73.09 and Abnormal LFTs R94.[address] [id number] Aug, Essential hypertension I10 [address] [id number] Feb, Essential hypertension I10 ; Dysthymia F34.1 and Back spasm M62.[address] [id number] November, Acute bilateral thoracic back pain M54.6 ; Dysthymia F34.1 and Essential hypertension I10 [address] [id number] Jul, Essential hypertension I10 and Dysthymia F34.[address] [id number] Sep, Essential hypertension I10 ; Dysthymia F34.1 ; Arthritis M19.90 ; Mixed hyperlipidemia E78.2 and Elevated liver enzymes R74.[address] [id number] Aug, Elevated liver function tests R79.[address] [id number] Aug, Elevated liver function tests R79.[address] [id number] Aug, Essential hypertension I10 [facility] [address] [id number] [id number] Aug, Essential hypertension I10 and Dysthymia F34.1 [facility] [address] [id number] [id number] Jul, [facility] [address] [id number][place] [id number] Jun, Essential hypertension, benign 401.1 [facility] [address] [id number] [id number] Apr, [facility] [id number] [place] [address] [id number] Feb, [facility] [id number] [place] [address] [id number] Jan, [facility] [id number] [place] [address] [id number] Dec, Back pain 724.5 [facility] [id number] [place] [address] [id number] Oct, Dysthymic disorder 300.4 [facility] [id number] [place] [address] [id number] Oct, Back pain 724.5 ; Essential hypertension, benign 401.1 and Dysthymic disorder 300.4 [facility] [address], [place] [address] Oct, [facility] [id number] [place] [address]- 3771 Oct, [facility] [place] [id number], [place] [id number] Sep, [facility] [id number] [place] [address] 01969- 4955 Sep, [facility] [place] [id number], [place] [id number] Aug, [facility] [id number] [place] [address] 29066- 9909 Aug, [facility] [address] [facility] [id number] [id number] Jul, [facility] [address] [id number], [place] [address] Jul, [facility] [address] [id number], [place] [id number] Jul, [facility] [address] [id number], [place] [address] Jul, [facility] [address] [id number], [place] [id number] Jun, [facility] [address], [place] [address] Jun, [facility] [address] [id number], [place] [id number] May, [facility] [address], [place] [address] May, [facility] [address], [place] [address] Apr, [facility] [address] [id number], [place] [address] Feb, [facility] [address] [id number], [place] [id number] Feb, [facility] [address] [id number], [place] [address] Jan, [facility] [address] [id number], [place] [address] 2546 November, IMMUNIZATIONS No Known Immunizations SOCIAL HISTORY Never Assessed REASON FOR VISIT Diabetes follow up Carlota COURTNEY PLAN OF CARE Activity Details Follow Up 2 Months Reason:dm VITAL SIGNS Height 61.5 in 2017-10-29 Weight 205.0 lbs 2017-10-29 Temperature 97.9 degrees Fahrenheit 2017-10-29 Heart Rate 90 bpm 2017-10-29 Respiratory Rate 18 2017-10-29 BMI 38.10 kg/m2 2017-10-29 Blood pressure systolic 112 mmHg 2017-10-29 Blood pressure diastolic 70 mmHg 2017-10-29 MEDICATIONS Medication Instructions Dosage Frequency Start Date End Date Duration Status GlipiZIDE 5 mg Orally Once a day 1 tablet 24h Sep, 30 day(s) Active Sertraline HCl 50 mg Orally Once a day. 1.5 tablet x 2 wk then 2 qam 0 Active Potassium Citrate 15 MEQ (1620 mg) oral 2 times a day 2 tab 12h Active Clonazepam 0.5 MG Orally twice a day .5 tablet 12h Sep, Active Lisinopril 20 MG Orally Once a day. take 1 tablet Active RESULTS No Results PROCEDURES No [...]
--- OUTSIDE RECORDS SUMMARY | 2018-10-08 08:33 | XMS REPORT ---
Author Author HUI ARAYA Organization [facility] Address [address] [place] [address] Care Team Providers Care Silver Solution Mixer Name Role Phone HUI ARAYA Unavailable PROBLEMS Type Condition ICD9-CM Code DEI02-IK Code Onset Dates Condition Status SNOMED Code Problem Essential hypertension I10 Active 22327658 Problem Abnormal liver enzymes R74.8 Active 885867490 Problem Type 2 diabetes mellitus without complication, without long-term current use of insulin E11.9 Active 598619534 Problem Arthritis M19.90 Active 8384135 Problem Dysthymia F34.1 Active 93094770 Problem Back spasm M62.830 Active 256416901 Problem Mixed hyperlipidemia E78.2 Active 405678678 ALLERGIES No Information ENCOUNTERS Encounter Location Date Diagnosis [facility] [address] [id number] Jan, Type 2 diabetes mellitus without complication, without long-term current use of insulin E11.9 ; Essential hypertension I10 and Dysthymia F34.1 [facility] [id number] [place] [address] [id number] Dec, Dysthymia F34.1 [facility] [id number] [place] [address] [id number] November, Dysthymia F34.1 [facility] [address] [id number] Oct, Abnormal liver enzymes R74.8 ; Dysthymia F34.1 ; Essential hypertension I10 and Type 2 diabetes mellitus without complication, without long-term current use of insulin E11.9 [facility] [address] [id number] Oct, Dysthymia F34.1 [facility] [id number] [place] [address] [id number] Sep, Essential hypertension I10 [address] [place] [address] [id number] Sep, Dysthymia F34.1 ; Type 2 diabetes mellitus without complication, without long-term current use of insulin E11.9 ; Essential hypertension I10 and Abnormal liver enzymes R74.8 [address] [place] [address] [id number] Sep, Abnormal glucose R73.[address] [id number] Aug, Mixed hyperlipidemia E78.2 ; Essential hypertension I10 ; Dysthymia F34.1 ; Back spasm M62.830 ; Abnormal glucose R73.09 and Abnormal LFTs R94.[address] [id number] Aug, Essential hypertension I10 [address] [id number] Feb, Essential hypertension I10 ; Dysthymia F34.1 and Back spasm M62.830 [address] [place] [address] [id number] November, Acute bilateral thoracic back pain M54.6 ; Dysthymia F34.1 and Essential hypertension I10 [address] [place] [address] [id number] Jul, Essential hypertension I10 and Dysthymia F34.1 [address] [place] [address] [id number] Sep, Essential hypertension I10 ; Dysthymia F34.1 ; Arthritis M19.90 ; Mixed hyperlipidemia E78.2 and Elevated liver enzymes R74.8 [address] [place] [address] [id number] Aug, Elevated liver function tests R79.89 [address] [place] [address] [id number] Aug, Elevated liver function tests R79.89 [address] [place] [address] [id number] Aug, Essential hypertension I10 [id number] [id number] Aug, Essential hypertension I10 and Dysthymia F34.1 [facility] [id number] [place] [id number] Jul, [facility] [address] [id number] [place] [id number] Jun, Essential hypertension, benign 401.1 [facility] [id number] [place] [address] [id number] Apr, [facility] [place] [address] [place] [address] [id number] [place] [id number] Feb, [facility] [id number] [place] [address] [id number] Jan, [facility] [id number] [place] [address] [id number] Dec, Back pain 724.5 [facility] [id number] [place] [address] [id number] Oct, Dysthymic disorder 300.4 [facility] [id number] [place] [address] [id number] Oct, Back pain 724.5 ; Essential hypertension, benign 401.1 and Dysthymic disorder 300.4 [facility] [address] [place] [address]- [address] Oct, [facility] [id number] [place] [address] 47464- 4503 Oct, [facility] [id number] [place] [id number] Sep, [facility] [address] [place] [address] 96615- 2741 Sep, [facility] [id number] [place] [address] [id number] Aug, [facility] [address] [place] [address] 71509- 3146 Aug, [facility] [id number] [place] [address] [id number] Jul, [facility] [address]00565[address], [place] [address] Jul, [facility] [address] [id number] [place] [id number] Jul, [facility] [address], [place] [address]- [address] Jul, [facility] [id number] [place] [id number] Jun, [facility] [address], [place] [address]- [address] Jun, [facility] [id number] [place] [id number] May, [facility] [address], [place] [address]- [address] May, [facility] [address], [place] [address]- 2546 Apr, [facility] [address], [place] [address]- 25[address] Feb, [facility] [address] [id number] [place] [id number] Feb, [facility] [address], [place] [address]- 25[address] Jan, [facility] [address], [place] [address]- [address] November, IMMUNIZATIONS No Known Immunizations SOCIAL HISTORY Never Assessed REASON FOR VISIT Lab work Carlota COURTNEY PLAN OF CARE VITAL SIGNS MEDICATIONS No Known Medications RESULTS No Results PROCEDURES Procedure Date Ordered Result Body Site COMPREHEN METABOLIC PANEL October 26, 2017 VENIPUNCT, ROUTINE* October 26, 2017 INSTRUCTIONS MEDICATIONS ADMINISTERED No Known Medications MEDICAL [...]
--- OUTSIDE RECORDS SUMMARY | 2018-10-08 08:33 | XMS REPORT ---
Author Author HUI ARAYA [facility] Address [address] [place] [address] Care Team Providers Care Mechanical Engineering [employer] Name Role Phone ARAYAHUI MONCADA Unavailable PROBLEMS Type Condition ICD9-CM Code GSP26-SD Code Onset Dates Condition Status SNOMED Code Problem Essential hypertension I10 Active 44854535 Problem Abnormal liver enzymes R74.8 Active 494594270 Problem Type 2 diabetes mellitus without complication, without long-term current use of insulin E11.9 Active 066965404 Problem Arthritis M19.90 Active 1540785 Problem Dysthymia F34.1 Active 28572293 Problem Back spasm M62.830 Active 097954740 Problem Mixed hyperlipidemia E78.2 Active 079841329 ALLERGIES Substance Reaction Event Type Date Status Benadryl hives Drug Allergy Jan, Active ENCOUNTERS Encounter Location Date Diagnosis [facility] [address] [id number] Jan, Type 2 diabetes mellitus without complication, without long-term current use of insulin E11.9 ; Essential hypertension I10 and Dysthymia F34.1 [facility] [id number] [place] [address] [id number] Dec, Dysthymia F34.1 [facility] [address] [id number] November, Dysthymia F34.1 [facility] [id number] [place] [address] [id number] Oct, Abnormal liver enzymes R74.8 ; Dysthymia F34.1 ; Essential hypertension I10 and Type 2 diabetes mellitus without complication, without long-term current use of insulin E11.9 [facility] [id number] [place] [address] [id number] Oct, Dysthymia F34.[address] [id number] Sep, Essential hypertension I10 [address] [id number] [place] [address] [id number] Sep, Dysthymia F34.1 ; Type 2 diabetes mellitus without complication, without long-term current use of insulin E11.9 ; Essential hypertension I10 and Abnormal liver enzymes R74.8 [address] [address] [id number] [place] [address] [id number] Sep, Abnormal glucose R73.[address] [id number] Aug, Mixed hyperlipidemia E78.2 ; Essential hypertension I10 ; Dysthymia F34.1 ; Back spasm M62.830 ; Abnormal glucose R73.09 and Abnormal LFTs R94.[address] [id number] Aug, Essential hypertension I10 [address] [id number] Feb, Essential hypertension I10 ; Dysthymia F34.1 and Back spasm M62.[address] [id number] November, Acute bilateral thoracic back pain M54.6 ; Dysthymia F34.1 and Essential hypertension I10 [address] [id number] Jul, Essential hypertension I10 and Dysthymia F34.[address] [id number] Sep, Essential hypertension I10 ; Dysthymia F34.1 ; Arthritis M19.90 ; Mixed hyperlipidemia E78.2 and Elevated liver enzymes R74.[address] [id number] Aug, Elevated liver function tests R79.[address] [id number] Aug, Elevated liver function tests R79.[address] [id number] Aug, Essential hypertension I10 [facility] [place] [address] [id number] [id number] Aug, Essential hypertension I10 and Dysthymia F34.1 [facility] [place] [address] [id number][place] [id number] Jul, [facility] [place] [address] [id number][place] [id number] Jun, Essential hypertension, benign 401.1 [facility] [place] [address] [id number][place] [phone] Apr, [facility] [place] [id number] [place] [address] [id number] Feb, [facility] [place] [id number] [place] [address] [id number] Jan, [facility] [place] [id number] [place] [address] [id number] Dec, Back pain 724.5 [facility] [place] [id number] [place] [address] [id number] Oct, Dysthymic disorder 300.4 [facility] [place] [id number] [place] [address] [id number] Oct, Back pain 724.5 ; Essential hypertension, benign 401.1 and Dysthymic disorder 300.4 [facility] [address]005[address], [place] [address] Oct, [facility] [id number] [place] [address]- 2391 Oct, [facility] [place] [id number], [place] [id number] Sep, [facility] [id number] [place] [address] 63190- 1794 Sep, [facility] [place] [id number], [place] [phone] Aug, [facility] [id number] [place] [address]- 8678 Aug, [facility] [address] [facility] [id number][place] [phone] Jul, [facility] [address] [id number], [place] [address] Jul, [facility] [address] [id number][place] [phone] Jul, [facility] [address] [id number], [place] [address] Jul, [facility] [address] [id number], [place] [id number] Jun, [facility] [address], [place] [address] Jun, [facility] [address] [id number], [place] [phone] May, [facility] [address] [id number], [place] [address] May, [facility] [address], [place] [address] Apr, [facility] [address] [id number], [place] [address] Feb, [facility] [address] [id number], [place] [id number] Feb, [facility] [address] [id number], [place] [address] Jan, [facility] [address] [id number], [place] [address] November, IMMUNIZATIONS No Known Immunizations SOCIAL HISTORY Never Assessed REASON FOR VISIT Diabetes visit Enrrique GIVENS PLAN OF CARE Activity Details Follow Up 3 Months Reason:dm VITAL SIGNS Height 61.5 in 2018-01-21 Weight 202 lbs 2018-01-21 Temperature 97.8 degrees Fahrenheit 2018-01-21 Heart Rate 80 bpm 2018-01-21 Respiratory Rate 16 2018-01-21 BMI 37.55 kg/m2 2018-01-21 Blood pressure systolic 120 mmHg 2018-01-21 Blood pressure diastolic 78 mmHg 2018-01-21 MEDICATIONS Medication Instructions Dosage Frequency Start Date End Date Duration Status Potassium Citrate 15 MEQ (1620 mg) oral 2 times a day 2 tab 12h Active Clonazepam 0.5 MG Orally twice a day .5 tablet 12h 15 Sep, 2017 Active Cyclobenzaprine HCl 5 MG TAKE ONE (1) TABLET BY MOUTH THREE (3) TIMES A DAY NEEDED. Active Lisinopril 10 mg Orally Once a day 1.5 tablet 24h Jan, Active Sertraline HCl 100 mg Orally Once a day 1 tablet 24h Jan, 30 day(s) Active RESULTS Name Result Date Reference Range A1C (IN HOUSE) 2018-01-21 A1C IN HOUSE 5.9 4.3 - 5.6 % Previous A1c 7.4 Lot [id number] Exp date 10/2019 PROCEDURES Procedure Date Ordered Result Body Site GLYCATED HEMOGLOBIN TEST January 21, 2018 INSTRUCTIONS MEDICATIONS ADMINISTERED No Known Medications MEDICAL [...]
--- OUTSIDE RECORDS SUMMARY | 2018-10-08 08:33 | XMS REPORT ---
Author Author HUI ARAYA Organization [facility] Address [address] [place] [address] Care Team Providers Care Office Equipment Mechanic Name Role Phone HUI ARAYA Unavailable PROBLEMS Type Condition ICD9-CM Code VUJ62-BF Code Onset Dates Condition Status SNOMED Code Problem Essential hypertension I10 Active 24383085 Problem Abnormal liver enzymes R74.8 Active 686143143 Problem Type 2 diabetes mellitus without complication, without long-term current use of insulin E11.9 Active 199680204 Problem Arthritis M19.90 Active 1502316 Problem Dysthymia F34.1 Active 96864306 Problem Back spasm M62.830 Active 090158618 Problem Mixed hyperlipidemia E78.2 Active 929976908 ALLERGIES No Information ENCOUNTERS Encounter Location Date Diagnosis [facility] [address] [id number] Jan, Type 2 diabetes mellitus without complication, without long-term current use of insulin E11.9 ; Essential hypertension I10 and Dysthymia F34.1 [facility] [id number] [place] [address] [id number] Dec, Dysthymia F34.1 [facility] [id number] [place] [address] [id number] November, Dysthymia F34.1 [facility] [address] [id number] Oct, Abnormal liver enzymes R74.8 ; Dysthymia F34.1 ; Essential hypertension I10 and Type 2 diabetes mellitus without complication, without long-term current use of insulin E11.9 [facility] [address] [id number] Oct, Dysthymia F34.1 [facility] [id number] [place] [address] [id number] Sep, Essential hypertension I10 [id number] [place] [address] [id number] Sep, Dysthymia F34.1 ; Type 2 diabetes mellitus without complication, without long-term current use of insulin E11.9 ; Essential hypertension I10 and Abnormal liver enzymes R74.8 [id number] [place] [address] [id number] Sep, Abnormal glucose R73.[address] [id number] Aug, Mixed hyperlipidemia E78.2 ; Essential hypertension I10 ; Dysthymia F34.1 ; Back spasm M62.830 ; Abnormal glucose R73.09 and Abnormal LFTs R94.[address] [id number] Aug, Essential hypertension I10 [address] [id number] Feb, Essential hypertension I10 ; Dysthymia F34.1 and Back spasm M62.830 [id number] [place] [address] [id number] November, Acute bilateral thoracic back pain M54.6 ; Dysthymia F34.1 and Essential hypertension I10 [id number] [place] [address] [id number] Jul, Essential hypertension I10 and Dysthymia F34.1 [address] [address] [id number] [place] [address] [id number] Sep, Essential hypertension I10 ; Dysthymia F34.1 ; Arthritis M19.90 ; Mixed hyperlipidemia E78.2 and Elevated liver enzymes R74.8 [id number] [place] [address] [id number] Aug, Elevated liver function tests R79.89 [id number] [place] [address] [id number] Aug, Elevated liver function tests R79.89 [id number] [place] [address] [id number] Aug, Essential hypertension I10 [address] [address] [id number] [phone] Aug, Essential hypertension I10 and Dysthymia F34.1 [facility] [place] [id number] [place] [id number] Jul, [facility] [address] [id number] [place] [phone] Jun, Essential hypertension, benign 401.1 [facility] [id number] [place] [address] [phone] Apr, [facility] [address] [id number] [place] [phone] Feb, [facility] [id number] [place] [address] [phone] Jan, [facility] [id number] [place] [address] [id number] Dec, Back pain 724.5 [facility] [id number] [place] [address] [phone] Oct, Dysthymic disorder 300.4 [facility] [id number] [place] [address] [id number] Oct, Back pain 724.5 ; Essential hypertension, benign 401.1 and Dysthymic disorder 300.4 [facility] [address] [place] [address]- 8356 Oct, [facility] [id number] [place] [address] 80441- 4683 Oct, [facility] [id number], [place] [id number] Sep, [facility] [address] [place] [address] 98893- 3025 Sep, [facility] [id number] [place] [address] [phone] Aug, [facility] [place] [address] [place] [address] 73152- 3016 Aug, [facility] [id number] [place] [address] [id number] Jul, [facility] [place] [address]100[place], [place] [address] Jul, [facility] [address] [id number] [phone] Jul, [facility] [place] [address], [place] [address] Jul, [facility] [id number], [place] [id number] Jun, [facility] [place] [address]100[place], [place] [address]- [address] Jun, [facility] [address]65[address], [place] [id number] May, [facility] [place] [address]100[place], [place] [address]- [address] May, [facility] [place] [address]00565100[place], [place] [address]- [address] Apr, [facility] [place] [address]100[place], [place] [address]- [address] Feb, [facility] [address]00565100[place], [place] [id number] Feb, [facility] [place] [address]100[place], [place] [address]- [address] Jan, [facility] [place] [address]100[place], [place] [address]- [address] November, IMMUNIZATIONS No Known Immunizations SOCIAL HISTORY Never Assessed REASON FOR VISIT RX-Klonopin refill PLAN OF CARE VITAL SIGNS MEDICATIONS Medication Instructions Dosage Frequency Start Date End Date Duration Status Clonazepam 0.5 MG Orally twice a day .5 tablet 12h 15 Sep, 2017 Active RESULTS No Results PROCEDURES No Known [...]
--- OUTSIDE RECORDS SUMMARY | 2018-10-08 08:34 | XMS REPORT ---
Author Author HUI ARAYA [facility] Address [address] [place] [address] Care Team Providers Care Civil Technician Name Role Phone HUI ARAYA Unavailable PROBLEMS Type Condition ICD9-CM Code AKC50-WC Code Onset Dates Condition Status SNOMED Code Problem Essential hypertension I10 Active 30804277 Problem Abnormal liver enzymes R74.8 Active 582668419 Problem Type 2 diabetes mellitus without complication, without long-term current use of insulin E11.9 Active 015493980 Problem Arthritis M19.90 Active 9554989 Problem Dysthymia F34.1 Active 98531423 Problem Back spasm M62.830 Active 725315775 Problem Mixed hyperlipidemia E78.2 Active 015685404 ALLERGIES No Information ENCOUNTERS Encounter Location Date Diagnosis [facility] [address] [id number] Jan, Type 2 diabetes mellitus without complication, without long-term current use of insulin E11.9 ; Essential hypertension I10 and Dysthymia F34.1 [facility] [id number] [place] [address] [id number] Dec, Dysthymia F34.1 [facility] [id number] [place] [address] [id number] November, Dysthymia F34.1 [facility] [address] [id number] Oct, Abnormal liver enzymes R74.8 ; Dysthymia F34.1 ; Essential hypertension I10 and Type 2 diabetes mellitus without complication, without long-term current use of insulin E11.9 [facility] [address] [id number] Oct, Dysthymia F34.1 [facility] [id number] [place] [address] [id number] Sep, Essential hypertension I10 [id number] [place] [address] [id number] Sep, Dysthymia F34.1 ; Type 2 diabetes mellitus without complication, without long-term current use of insulin E11.9 ; Essential hypertension I10 and Abnormal liver enzymes R74.8 [address] [place] [address] [id number] Sep, Abnormal glucose R73.[address] [id number] Aug, Mixed hyperlipidemia E78.2 ; Essential hypertension I10 ; Dysthymia F34.1 ; Back spasm M62.830 ; Abnormal glucose R73.09 and Abnormal LFTs R94.[address] [id number] Aug, Essential hypertension I10 [address] [id number] Feb, Essential hypertension I10 ; Dysthymia F34.1 and Back spasm M62.830 [id number] [place] [address] [id number] November, Acute bilateral thoracic back pain M54.6 ; Dysthymia F34.1 and Essential hypertension I10 [id number] [place] [address] [id number] Jul, Essential hypertension I10 and Dysthymia F34.1 [address] [place] [address] [id number] Sep, Essential hypertension I10 ; Dysthymia F34.1 ; Arthritis M19.90 ; Mixed hyperlipidemia E78.2 and Elevated liver enzymes R74.8 [address] [place] [address] [phone] Aug, Elevated liver function tests R79.89 [address] [place] [address] [id number] Aug, Elevated liver function tests R79.89 [id number] [place] [address] [id number] Aug, Essential hypertension I10 [address] [id number] [phone] Aug, Essential hypertension I10 and Dysthymia F34.1 [facility] [place] [id number] [place] [id number] Jul, [facility] [address] [id number] [place] [id number] Jun, Essential hypertension, benign 401.1 [facility] [place] [id number] [place] [address] [id number] Apr, [facility] [place] [address] [id number] [place] [id number] Feb, [facility] [place] [id number] [place] [address] [id number] Jan, [facility] [place] [id number] [place] [address] [id number] Dec, Back pain 724.5 [facility] [place] [id number] [place] [address] [id number] Oct, Dysthymic disorder 300.4 [facility] [place] [id number] [place] [address] [id number] Oct, Back pain 724.5 ; Essential hypertension, benign 401.1 and Dysthymic disorder 300.4 [facility] [address] [place] [address] 72439- [address] Oct, [facility] [id number] [place] [address] 66857- 5541 Oct, [facility] [place] [id number], [place] [id number] Sep, [facility] [address] [place] [address] 59184- 5412 Sep, [facility] [place] [id number] [place] [address] [id number] Aug, [facility] [address] [place] [address] 16784- 1786 Aug, [facility] [place] [id number] [place] [address] [id number] Jul, [facility] [address]65100[place] [address]- [address] Jul, [facility] [address] [id number], [place] [id number] Jul, [facility] [address]100[place] [address]- 2546 Jul, [facility] [id number], [place] [id number] Jun, [facility] [address]00565100[place] [address]- 2546 Jun, [facility] [id number], [place] [id number] May, [facility] [address]65100[place] [address]- 2546 May, [facility] [address]65100[place] [address]- 2546 Apr, [facility] [address]65100[place] [address]- 2546 Feb, [facility] [address] [id number], [place] [id number] Feb, [facility] [address]65100[place] [address]- 2546 Jan, [facility] [address]100[place] [address]- 2546 November, IMMUNIZATIONS No Known Immunizations SOCIAL HISTORY Never Assessed REASON FOR VISIT Lab (walk-in) Carlota Jefferson PLAN OF CARE VITAL SIGNS MEDICATIONS No Known Medications RESULTS No Results PROCEDURES Procedure Date Ordered Result Body Site COMPREHEN METABOLIC PANEL September 21, 2017 EDIE, JAMES* September 21, 2017 INSTRUCTIONS MEDICATIONS ADMINISTERED No Known Medications MEDICAL (GENERAL) HISTORY Type Description Date Medical History hypertension Medical History depression Medical History kidney stones Surgical History cholecystectomy 1991 Surgical History 1989 Surgical History Lithotripsy 2013 Surgical History hysterectomy, total with bilateral salpingo-oophorectomy (BSO ) 2012 Surgical History bladder surgery 1/17/18 Hospitalization History childbirth, surgeries Hospitalization History urgent care for back spasms 10/27
--- OUTSIDE RECORDS SUMMARY | 2018-10-08 08:34 | XMS REPORT ---
Author Author HUI ARAYA [facility] Address [address] [place] [address] Care Team Providers Care Broke Beater Name Role Phone HUI ARAYA Unavailable PROBLEMS Type Condition ICD9-CM Code PNE54-XJ Code Onset Dates Condition Status SNOMED Code Problem Essential hypertension I10 Active 88300929 Problem Abnormal liver enzymes R74.8 Active 700364321 Problem Type 2 diabetes mellitus without complication, without long-term current use of insulin E11.9 Active 344337025 Problem Arthritis M19.90 Active 6833235 Problem Dysthymia F34.1 Active 75881242 Problem Back spasm M62.830 Active 925533938 Problem Mixed hyperlipidemia E78.2 Active [id number] ALLERGIES No Information ENCOUNTERS Encounter Location Date Diagnosis [facility] [address] [id number] Jan, Type 2 diabetes mellitus without complication, without long-term current use of insulin E11.9 ; Essential hypertension I10 and Dysthymia F34.1 [facility] [id number] [place] [address] [id number] Dec, Dysthymia F34.1 [facility] [id number] [place] [address] [id number] November, Dysthymia F34.1 [facility] [address] [id number] Oct, Abnormal liver enzymes R74.8 ; Dysthymia F34.1 ; Essential hypertension I10 and Type 2 diabetes mellitus without complication, without long-term current use of insulin E11.9 [facility] [address] [id number] Oct, Dysthymia F34.1 [facility] [id number] [place] [address] [id number] Sep, Essential hypertension I10 [place] [address] [id number] [place] [address] [id number] Sep, Dysthymia F34.1 ; Type 2 diabetes mellitus without complication, without long-term current use of insulin E11.9 ; Essential hypertension I10 and Abnormal liver enzymes R74.8 [place] [id number] [place] [address] [id number] Sep, Abnormal glucose R73.[address] [id number] Aug, Mixed hyperlipidemia E78.2 ; Essential hypertension I10 ; Dysthymia F34.1 ; Back spasm M62.830 ; Abnormal glucose R73.09 and Abnormal LFTs R94.[address] [id number] Aug, Essential hypertension I10 [address] [id number] Feb, Essential hypertension I10 ; Dysthymia F34.1 and Back spasm M62.830 [address] [place] [id number] [place] [address] [id number] November, Acute bilateral thoracic back pain M54.6 ; Dysthymia F34.1 and Essential hypertension I10 [address] [id number] [place] [address] [id number] Jul, Essential hypertension I10 and Dysthymia F34.1 [place] [id number] [place] [address] [id number] Sep, Essential hypertension I10 ; Dysthymia F34.1 ; Arthritis M19.90 ; Mixed hyperlipidemia E78.2 and Elevated liver enzymes R74.8 [place] [id number] [place] [address] [id number] Aug, Elevated liver function tests R79.89 [place] [id number] [place] [address] [id number] Aug, Elevated liver function tests R79.89 [address] [id number] [place] [address] [id number] Aug, Essential hypertension I10 [id number] [id number] Aug, Essential hypertension I10 and Dysthymia F34.1 [facility] [id number] [place] [id number] Jul, [facility] [address] [id number] [place] [id number] Jun, Essential hypertension, benign 401.1 [facility] [id number] [place] [address] [id number] Apr, [facility] [address] [id number] [place] [id number] Feb, [facility] [id number] [place] [address] [id number] Jan, [facility] [id number] [place] [address] [id number] Dec, Back pain 724.5 [facility] [id number] [place] [address] [id number] Oct, Dysthymic disorder 300.4 [facility] [id number] [place] [address] [id number] Oct, Back pain 724.5 ; Essential hypertension, benign 401.1 and Dysthymic disorder 300.4 [facility] [id number] [place] [phone] Oct, [facility] [id number] [place] [phone]- [phone] Oct, [facility] [id number] [id number] Sep, [facility] [id number] [place] [phone]- [phone] Sep, [facility] [id number] [place] [address] [id number] Aug, [facility] [address] [place] [address] [phone]- [phone] Aug, [facility] [id number] [place] [address] [id number] Jul, [facility] [address], [place] [address] Jul, [facility] [address] [id number] [id number] Jul, [facility] [address], [place] [address] Jul, [facility] [address]005[address] [id number] Jun, [facility] [address], [place] [address] Jun, [facility] [address] [id number] May, [facility] [address], [place] [address] May, [facility] [address], [place] [address] Apr, [facility] [address], [place] [address] Feb, [facility] [address] [id number] [id number] Feb, [facility] [address], [place] [address] Jan, [facility] [address], [place] [address] November, IMMUNIZATIONS No Known Immunizations SOCIAL HISTORY Never Assessed REASON FOR VISIT RX-Lisinopril refill PLAN OF CARE VITAL SIGNS MEDICATIONS Medication Instructions Dosage Frequency Start Date End Date Duration Status Lisinopril 10 mg Orally Once a day. take 1 tablet [...]
--- OUTSIDE RECORDS SUMMARY | 2018-10-08 08:34 | XMS REPORT ---
Author Author HUI ARAYA [facility] Address [address] [place] [address] Care Team Providers Care Service Coordinator [facility]ly Facility Name Role Phone ARAYAHUI MONCADA Unavailable PROBLEMS Type Condition ICD9-CM Code SBU68-MA Code Onset Dates Condition Status SNOMED Code Problem Essential hypertension I10 Active 72633265 Problem Abnormal liver enzymes R74.8 Active 695929654 Problem Type 2 diabetes mellitus without complication, without long-term current use of insulin E11.9 Active 260000328 Problem Arthritis M19.90 Active 3319863 Problem Dysthymia F34.1 Active 30568519 Problem Back spasm M62.830 Active 958572235 Problem Mixed hyperlipidemia E78.2 Active 165501698 ALLERGIES Substance Reaction Event Type Date Status Benadryl hives Drug Allergy Sep, Active ENCOUNTERS Encounter Location Date Diagnosis [facility] [address] [id number] Jan, Type 2 diabetes mellitus without complication, without long-term current use of insulin E11.9 ; Essential hypertension I10 and Dysthymia F34.1 [facility] [id number] [place] [address] [id number] Dec, Dysthymia F34.1 [facility] [address] [id number] November, Dysthymia F34.1 [facility] [id number] [place] [address] [id number] Oct, Abnormal liver enzymes R74.8 ; Dysthymia F34.1 ; Essential hypertension I10 and Type 2 diabetes mellitus without complication, without long-term current use of insulin E11.9 [facility] [id number] [place] [address] [id number] Oct, Dysthymia F34.[address] [id number] Sep, Essential hypertension I10 [id number] [place] [address] [id number] Sep, Dysthymia F34.1 ; Type 2 diabetes mellitus without complication, without long-term current use of insulin E11.9 ; Essential hypertension I10 and Abnormal liver enzymes R74.8 [address] [id number] [place] [address] [id number] Sep, Abnormal glucose R73.[address] [id number] Aug, Mixed hyperlipidemia E78.2 ; Essential hypertension I10 ; Dysthymia F34.1 ; Back spasm M62.830 ; Abnormal glucose R73.09 and Abnormal LFTs R94.[address] [id number] Aug, Essential hypertension I10 [address] [id number] Feb, Essential hypertension I10 ; Dysthymia F34.1 and Back spasm M62.[address] [id number] November, Acute bilateral thoracic back pain M54.6 ; Dysthymia F34.1 and Essential hypertension I10 [address] [id number] Jul, Essential hypertension I10 and Dysthymia F34.[address] [id number] Sep, Essential hypertension I10 ; Dysthymia F34.1 ; Arthritis M19.90 ; Mixed hyperlipidemia E78.2 and Elevated liver enzymes R74.[address] [id number] Aug, Elevated liver function tests R79.[address] [id number] Aug, Elevated liver function tests R79.[address] [id number] Aug, Essential hypertension I10 [facility] [address] [id number] [place] [id number] Aug, Essential hypertension I10 and Dysthymia F34.1 [facility] [address] [id number] [place] [id number] Jul, [facility] [address] [id number] [place] [id number] Jun, Essential hypertension, benign 401.1 [facility] [address] [id number] [place] [id number] Apr, [facility] [id number] [place] [address] [id number] Feb, [facility] [id number] [place] [address] [id number] Jan, [facility] [id number] [place] [address] [id number] Dec, Back pain 724.5 [facility] [id number] [place] [address] [id number] Oct, Dysthymic disorder 300.4 [facility] [id number] [place] [address] [id number] Oct, Back pain 724.5 ; Essential hypertension, benign 401.1 and Dysthymic disorder 300.4 [facility] [address]005[address], [place] [address] Oct, [facility] [id number] [place] [address]- [address] Oct, [facility] [id number] [place] [id number] Sep, [facility] [id number] [place] [address] Sep, [facility] [id number] [place] [id number] Aug, [facility] [id number] [place] [address] 76[address]- [address] Aug, [facility] [address] [facility] [id number] [place] [id number] Jul, [facility] [address], [place] [address] Jul, [facility] [address] [id number] [place] [id number] Jul, [facility] [address] [id number], [place] [address] Jul, [facility] [id number] [place] [id number] Jun, [facility] [address], [place] [address] Jun, [facility] [id number] [place] [id number] May, [facility] [address], [place] [address] May, [facility] [address], [place] [address] Apr, [facility] [address], [place] [address] Feb, [facility] [address] [id number] [place] [id number] Feb, [facility] [address] [id number], [place] [address] Jan, [facility] [address], [place] [address] November, IMMUNIZATIONS No Known Immunizations SOCIAL HISTORY Never Assessed REASON FOR VISIT 1 month follow up on HTN. Had to go to [facility] by ambulance about 2 weeks ago, spent 3 days there. Has been very anxious. jone Loya PLAN OF CARE Activity Details Follow Up 4 Weeks Reason:dm VITAL SIGNS Height 61.5 in 2017-09-24 Weight 204.2 lbs 2017-09-24 Temperature 98.6 degrees Fahrenheit 2017-09-24 Heart Rate 90 bpm 2017-09-24 Respiratory Rate 16 2017-09-24 BMI 37.95 kg/m2 2017-09-24 Blood pressure systolic 128 mmHg 2017-09-24 Blood pressure diastolic 76 mmHg 2017-09-24 MEDICATIONS Medication Instructions Dosage Frequency Start Date End Date Duration Status Fish Oil 1000 MG Orally twice a day 1 capsule 12h Aug, Sep, 30 day(s) Active Methocarbamol 500 mg Orally 3 times a day 1 tablets 8h Aug,Sep 30 day(s) Active Acetaminophen 500 mg Orally 3 times a day 2 capsule as needed 8h Aug, Active Sertraline HCl 50 mg Orally Once a day. 1.5 tablet x 2 wk then 2 qam 0 Active GlipiZIDE 5 mg Orally Once a day 1 tablet 24h Sep, 30 day(s) Active Lisinopril 10 MG Orally Once a day. take 1 tablet Active Clonazepam 0.5 MG Orally twice a day .5 tablet 12h Sep, Active Hydrochlorothiazide 25 MG Orally Once a day 1 tablet 24h Active Potassium Citrate 15 MEQ (1620 mg) oral 2 times a day 2 tab 12h Active RESULTS Name Result Date Reference Range A1C (IN HOUSE) 2017-09-24 A1C IN HOUSE 7.4 4.3 - 5.6 % Previous A1c Lot [id number] Exp date 05/31 PROCEDURES Procedure Date Ordered Result Body Site GLYCATED HEMOGLOBIN TEST September 24, 2017 INSTRUCTIONS MEDICATIONS ADMINISTERED No Known Medications [...]
--- OUTSIDE RECORDS SUMMARY | 2018-10-08 08:35 | XMS REPORT | Continuity of Care Document ---
Author Author [facility] Address Unknown Phone Unavailable Allergies Active Description Code Type Severity Reaction Onset Reported/Identified Relationship to Patient Clinical Status Yes Benadryl Drug Allergy N/A N/A 06/01/2014 Yes diphenhydramine [id number] Drug Allergy Mild N/A 07/22/2017 Medications There is no data. Problems Date Dx Coded Attending Type Code Diagnosis Diagnosed By 01/19/2008 HUI ARAYA APRN V05.3 HEPATITIS VIRAL/ALL 01/19/2008 HUI ARAYA APRN V05.3 HEPATITIS VIRAL/ALL 01/19/2008 HUI ARAYA APRN V05.3 HEPATITIS VIRAL/ALL 11/20/2008 HUI ARAYA APRN [...] APRN Ot 592.0 CALCULUS OF KIDNEY 04/11/2014 ETAHN NAPOLES MD Ot 592.0 CALCULUS OF KIDNEY [...] EXAMINATION 06/26/2017 ETHAN NAPOLES MD, Ot V72.81 [id number] CARDIOVASCULAR 06/26/2017 ETHAN NAPOLES MD Ot V74.8 SCREEN-BACTERIAL DIS NEC 06/26/2017 ETHAN NAPOLES MD Ot 592.0 CALCULUS OF KIDNEY 06/26/2017 ETHAN NAPOLES MD, Ot V72.84 EXAM PRE-OPERATIVE NOS 06/26/2017 ETHAN NAPOLES MD Ot 793.19 OTHER NONSPECIFIC ABNORMAL FINDING OF DEB 06/26/2017 ETHAN NAPOLES MD Ot 592.0 CALCULUS OF KIDNEY 06/26/2017 ETHAN NAPOLES MD, Ot 592.1 CALCULUS OF URETER 06/26/2017 ETHAN NAPOLES MD Ot V45.89 POSTSURGICAL STATES NEC 06/26/2017 ETHAN NAPOLES MD Ot 571.8 CHRONIC LIVER DIS NEC 06/26/2017 ETHAN NAPOLES MD Ot 592.0 CALCULUS OF KIDNEY 06/26/2017 ETHAN NAPOLES MD Ot 793.11 SOLITARY PULMONARY NODULE 06/26/2017 ETHAN NAPOLES MD, Ot 592.1 CALCULUS OF URETER 06/26/2017 ETHAN NAPOLES MD Ot V67.09 SURGERY FOLLOW-UP, OTHER SURGERY 07/22/2017 ETHAN NAPOLES MD Ot N32.81 OVERACTIVE BLADDER 07/22/2017 ETHAN NAPOLES MD Ot R32 UNSPECIFIED URINARY INCONTINENCE 07/22/2017 ETHAN NAPOLES MD Ot Z01.818 ENCOUNTER FOR OTHER PREPROCEDURAL EXAMIN 07/29/2017 ETHAN NAPOLES MD Ot 592.9 URINARY CALCULUS NOS 07/29/2017 ETHAN NAPOLES MD Ot 592.0 CALCULUS OF KIDNEY 07/29/2017 ETHAN NAPOLES MD, Ot 592.1 CALCULUS OF URETER 07/29/2017 ETHAN NAPOLES MD, Ot V72.63 PRE-PROCEDURAL LABORATORY EXAMINATION 07/29/2017 ETHAN ANPOLES MD Ot V72.81 [id number] CARDIOVASCULAR 07/29/2017 ETHAN NAPOLES MD Ot V74.8 SCREEN-BACTERIAL DIS NEC 07/29/2017 ETHAN NAPOLES MD Ot 592.0 CALCULUS OF KIDNEY 07/29/2017 ETHAN NAPOLES MD Ot V72.84 EXAM PRE-OPERATIVE NOS 07/29/2017 ETHAN NAPOLES MD Ot 793.19 OTHER NONSPECIFIC ABNORMAL FINDING OF DEB 07/29/2017 ETHAN NAPOLES MD Ot 592.0 CALCULUS OF KIDNEY 07/29/2017 ETHAN NAPOLES MD Ot 592.1 CALCULUS OF URETER 07/29/2017 ETHAN NAPOLES MD Ot V45.89 POSTSURGICAL STATES NEC 07/29/2017 ETHAN NAPOLES MD Ot 571.8 CHRONIC LIVER DIS NEC 07/29/2017 ETHAN NAPOLES MD Ot 592.0 CALCULUS OF KIDNEY 07/29/2017 ETHAN NAPOLES MD Ot 793.11 SOLITARY PULMONARY NODULE 07/29/2017 ETHAN NAPOLES MD Ot 592.1 CALCULUS OF URETER 07/29/2017 ETHAN NAPOLES MD Ot V67.09 SURGERY FOLLOW-UP, OTHER SURGERY 07/29/2017 ETHAN NAPOLES MD Ot M54.9 DORSALGIA, UNSPECIFIED 07/29/2017 ETHAN NAPOLES MD Ot N20.0 CALCULUS OF KIDNEY 07/29/2017 ETHAN NAPOLES MD Ot R91.8 OTHER NONSPECIFIC ABNORMAL FINDING OF DEB 07/29/2017 ETHAN NAPOLES MD Ot Z90.49 ACQUIRED ABSENCE OF OTHER SPECIFIED PART 07/30/2017 ETHAN NAPOLES MD Ot E66.9 OBESITY, UNSPECIFIED 07/30/2017 ETHAN NAPOLES MD Ot F17.210 NICOTINE DEPENDENCE, CIGARETTES, UNCOMPL 07/30/2017 ETHAN NAPOLES MD Ot F32.9 MAJOR DEPRESSIVE DISORDER, SINGLE EPISOD 07/30/2017 ETHAN NAPOLES MD Ot F41.9 ANXIETY DISORDER, UNSPECIFIED 07/30/2017 ETHAN NAPOLES MD Ot G47.33 OBSTRUCTIVE SLEEP APNEA (ADULT) (PEDIATR 07/30/2017 ETHAN NAPOLES MD Ot I10 ESSENTIAL (PRIMARY) HYPERTENSION 07/30/2017 ETHAN NAPOLES MD, Ot K21.9 GASTRO-ESOPHAGEAL REFLUX DISEASE WITHOUT 07/30/2017 ETHAN NAPOLES MD, Ot N32.81 OVERACTIVE BLADDER 07/30/2017 ETHAN NAPOLES MD, Ot 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.42 INTRINSIC SPHINCTER DEFICIENCY (ISD) 07/30/2017 ETHAN NAPOLES MD, Ot N39.46 MIXED INCONTINENCE 07/30/2017 ETHAN NAPOLES MD, Ot N81.10 CYSTOCELE, UNSPECIFIED 07/30/2017 ETHAN NAPOLES MD Ot Z11.2 ENCOUNTER FOR SCREENING FOR OTHER BACTER 07/30/2017 ETHAN NAPOLES MD, Ot Z68.37 BODY MASS INDEX (BMI) 37.0-37.9, ADULT 07/30/2017 ETHAN NAPOLES MD Ot Z79.899 OTHER MCC (CURRENT) DRUG THERAPY 07/30/2017 ETHAN NAPOLES MD, Ot Z87.442 PERSONAL HISTORY OF URINARY CALCULI 07/31/2017 ETHAN NAPOLES MD Ot E66.9 OBESITY, UNSPECIFIED 07/31/2017 ETHAN NAPOLES MD Ot F17.210 NICOTINE DEPENDENCE, CIGARETTES, UNCOMPL 07/31/2017 ETHAN NAPOLES MD, Ot F32.9 MAJOR DEPRESSIVE DISORDER, SINGLE EPISOD 07/31/2017 ETHAN NAPOLES MD, Ot F41.9 ANXIETY DISORDER, UNSPECIFIED 07/31/2017 ETHAN NAPOLES MD, Ot G47.33 OBSTRUCTIVE SLEEP APNEA (ADULT) (PEDIATR 07/31/2017 ETHAN NAPOLES MD Ot I10 ESSENTIAL (PRIMARY) HYPERTENSION 07/31/2017 ETHAN NAPOLES MD, Ot K21.9 GASTRO-ESOPHAGEAL REFLUX DISEASE WITHOUT 07/31/2017 ETHAN NAPOLES MD, Ot N32.81 OVERACTIVE BLADDER 07/31/2017 ETHAN NAPOLES MD, Ot N36.42 INTRINSIC SPHINCTER DEFICIENCY (ISD) 07/31/2017 ETHAN NAPOLES MD, Ot N39.46 MIXED INCONTINENCE 07/31/2017 ETHAN NAPOLES MD, Ot N81.10 CYSTOCELE, UNSPECIFIED 07/31/2017 ETHAN NAPOLES MD, Ot Z11.2 ENCOUNTER FOR SCREENING FOR OTHER BACTER 07/31/2017 ETHAN NAPOLES MD, Ot Z68.37 BODY MASS INDEX (BMI) 37.0-37.9, ADULT 07/31/2017 ETHAN NAPOLES MD, Ot 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 Results Test [...] plasma albumin measurement (mass/volume) 4.2 g/dL 3.2-4.5 Methicillin resistant Staphylococcus aureus (MRSA) screening culture - 06:26 Methicillin resistant Staphylococcus aureus (MRSA) screening culture NEG NRG CMP - 08/25/17 08:08 GLUCOSE 151 mg/dL 65-99 UREA NITROGEN (BUN) 11 mg/dL 7-25 CREATININE 0.71 mg/dL 0.50-1.10 eGFR NON-AFR. SERBIAN 102 mL/min/1.73m2 > OR=60 eGFR 118 mL/min/1.73m2 > OR=60 BUN/CREATININE RATIO NOT APPLICABLE (calc) 6-22 SODIUM 141 mmol/L 135-146 POTASSIUM 4.0 mmol/L 3.5-5.3 CHLORIDE 107 mmol/L 98-110 CARBON DIOXIDE 27 mmol/L 20-31 CALCIUM 9.4 mg/dL 8.6-10.2 PROTEIN, TOTAL 6.7 g/dL 6.1-8.1 ALBUMIN 4.3 g/dL 3.6-5.1 GLOBULIN 2.4 g/dL (calc) 1.9-3.7 ALBUMIN/GLOBULIN RATIO 1.8 (calc) 1.0-2.5 BILIRUBIN, TOTAL 0.4 mg/dL 0.2-1.2 ALKALINE PHOSPHATASE 75 U/L 33-115 AST 69 U/L 10-35 ALT 109 U/L 6-29 CBC - 08/25/17 08:08 WHITE BLOOD CELL COUNT 5.4 Thousand/uL 3.8-10.8 RED BLOOD CELL COUNT 4.24 Million/uL 3.80-5.10 HEMOGLOBIN 13.4 g/dL 11.7-15.5 HEMATOCRIT 40.2 % 35.0-45.0 MCV 94.8 fL 80.0-100.0 MCH 31.6 pg 27.0-33.0 MCHC 33.3 g/dL 32.0-36.0 RDW 13.1 % 11.0-15.0 PLATELET COUNT 296 Thousand/uL 140-400 MPV 11.0 fL 7.5-12.5 ABSOLUTE NEUTROPHILS 2738 cells/uL 3258-7337 ABSOLUTE LYMPHOCYTES 2063 cells/uL 850-3900 ABSOLUTE MONOCYTES 432 cells/uL 200-950 ABSOLUTE EOSINOPHILS 119 cells/uL 15-500 ABSOLUTE BASOPHILS 49 cells/uL 0-200 NEUTROPHILS 50.7 % NRG LYMPHOCYTES 38.2 % NRG MONOCYTES 8.0 % NRG EOSINOPHILS 2.2 % NRG BASOPHILS 0.9 % NRG CMP - 09/21/17 08:03 GLUCOSE 133 mg/dL 65-99 UREA NITROGEN (BUN) 16 mg/dL 7-25 CREATININE 0.79 mg/dL 0.50-1.10 eGFR NON-AFR. SERBIAN 90 mL/min/1.73m2 > OR=60 eGFR 104 mL/min/1.73m2 > OR=60 BUN/CREATININE RATIO NOT APPLICABLE (calc) 6-22 SODIUM 141 mmol/L 135-146 POTASSIUM 4.1 mmol/L 3.5-5.3 CHLORIDE 107 mmol/L 98-110 CARBON DIOXIDE 28 mmol/L 20-31 CALCIUM 9.7 mg/dL 8.6-10.2 PROTEIN, TOTAL 6.9 g/dL 6.1-8.1 ALBUMIN 4.5 g/dL 3.6-5.1 GLOBULIN 2.4 g/dL (calc) 1.9-3.7 ALBUMIN/GLOBULIN RATIO 1.9 (calc) 1.0-2.5 BILIRUBIN, TOTAL 0.3 mg/dL 0.2-1.2 ALKALINE PHOSPHATASE 72 U/L 33-115 AST 56 U/L 10-35 ALT 98 U/L 6-29 Encounters ACCT No. Visit Date/Time Discharge Status Pt. Type Provider Facility Loc./Unit Complaint [id number] 08/28/2014 14:41:00 08/28/2014 23:59:59 [facility] Outpatient HUI ARAYA APRN [id number] 06/01/2014 15:03:00 06/01/2014 23:59:59 [facility] Outpatient ARAYAHUI Escobar APRN [id number] 01/24/2009 09:48:00 01/24/2009 23:59:59 CLS Outpatient ARAYAHUI MONCADA APRN [id number] 08/30/2018 18:00:00 08/30/2018 23:59:59 CLS Outpatient ARAYAHUI MONCADA APRN [facility] [id number] 09/21/2017 08:00:00 Document Registration [id number] 08/25/2017 08:00:00 Document Registration [id number] 07/29/2017 05:49:00 07/30/2017 11:15:00 DIS Outpatient ETHAN NAPOLES MD Via [facility] MIXED INCONTINENCE, OVERACTIVE BLADDER,ISD [id number] 07/22/2017 05:40:00 07/22/2017 11:12:00 DIS Outpatient ETHAN NAPOLES MD Via [facility] PREOP MIXED INCONTINENCE, OVERACTIVE BLADDER [id number] 06/29/2017 16:24:00 06/29/2017 23:59:59 CLS Outpatient ETHAN NAPOLES MD Via [facility] RAD H/O STONES,BACK PAIN [id number] 03/04/2016 13:49:00 03/04/2016 16:43:00 DIS Emergency TERRA FOWLER Via [facility] ER LOW BACK PAIN/NAUSEA [id number] 10/25/2014 13:32:00 10/25/2014 15:45:00 DIS Emergency CANDELARIO DOWNS APRN Via [facility] ER LEFT SIDED PAIN, HX OF STONES [id number] 05/16/2014 14:01:00 05/16/2014 23:59:59 CLS Outpatient ETHAN NAPOLES MD Via [facility] RAD RT URETER STONE [id number] 05/05/2014 11:27:00 05/05/2014 23:59:59 CLS Outpatient ETHAN NAPOLES MD Via [facility] RAD LT FLANK PAIN [id number] 04/26/2014 06:08:00 04/26/2014 11:25:00 DIS Outpatient ETHAN NAPOLES MD Via [facility] RIGHT URETERAL STONE [id number] 04/25/2014 07:23:00 04/25/2014 23:59:59 CLS Outpatient ETHAN NAPOLES MD Via [facility] PREOP RIGHT URETERAL STONE [id number] 04/24/2014 13:57:00 04/24/2014 23:59:59 CLS Outpatient ETHAN NAPOLES MD Via [facility] RAD STONES [id number] 04/14/2014 12:14:00 04/14/2014 23:59:59 CLS Outpatient ETHAN NAPOLES MD Via [facility] RAD CHEST LEISON [id number] 04/11/2014 08:16:00 04/11/2014 13:40:00 DIS Outpatient ETHAN NAPOLES MD Via [facility] RIGHT RENAL AND URETERAL STONES [id number] 04/10/2014 14:20:00 04/10/2014 23:59:59 CLS Outpatient ETHAN NAPOLES MD Via [facility] PREOP RIGHT RENAL AND URETERAL STONES [id number] 04/10/2014 12:19:00 04/10/2014 23:59:59 CLS Outpatient ETHAN NAPOLES MD Via [facility] RAD STONES [id number] 04/09/2014 15:44:00 04/09/2014 18:01:00 DIS Emergency CANDELARIO DOWNS APRN Via [facility] ER KIDNEY STONE [id number] 09/20/2014 10:21:00 Document Registration [id number] 10/26/2014 05:27:48 ACT Document Registration
[2018-10-08 09:00] LABS: BILIRUBIN,URINE NEGATIVE (NEGATIVE); CLARITY,URINE CLEAR; COLOR,URINE YELLOW; GLUCOSE, URINE (UA) NEGATIVE (NEGATIVE); KETONES,URINE NEGATIVE (NEGATIVE); LEUKOCYTE ESTERASE ,URINE 2+ (NEGATIVE); NITRITE,URINE NEGATIVE (NEGATIVE); PH,URINE 6.5 (5-9); PROTEIN,URINE 1+ (NEGATIVE); UROBILINOGEN,URINE NORMAL (NORMAL)
[2018-10-08 09:09] LABS: BACTERIA,URINE FEW /HPF; RBC,URINE 0-2 /HPF
[2018-10-08 09:49] LABS: BASOPHILS # (AUTO) 0.1 10^3/uL (0.0-0.1); BASOPHILS % (AUTO) 1 % (0-10); EOSINOPHILS # (AUTO) 0.1 10^3/uL (0.0-0.3); EOSINOPHILS % (AUTO) 1 % (0-10); HEMATOCRIT 38 % (35-52); HEMOGLOBIN 12.5 G/DL (11.5-16.0); LYMPHOCYTES # (AUTO) 2.1 X 10^3 (1.0-4.0); LYMPHOCYTES % (AUTO) 32 % (12-44); MEAN CORPUSCULAR HEMOGLOBIN 31 PG (25-34); MEAN CORPUSCULAR HGB CONC 33 G/DL (32-36); MEAN CORPUSCULAR VOLUME 94 FL (80-99); MEAN PLATELET VOLUME 11.1 FL (7.4-10.4); MONOCYTES # (AUTO) 0.6 X 10^3 (0.0-1.0); MONOCYTES % (AUTO) 9 % (0-12); NEUTROPHILS # (AUTO) 3.7 X 10^3 (1.8-7.8); NEUTROPHILS % (AUTO) 57 % (42-75); PLATELET COUNT 259 10^3/uL (130-400); RED CELL DISTRIBUTION WIDTH 13.7 % (10.0-14.5); WHITE BLOOD COUNT 6.5 10^3/uL (4.3-11.0)
[2018-10-08 10:10] LABS: ALANINE AMINOTRANSFERASE 75 U/L (0-55); ALBUMIN 3.7 GM/DL (3.2-4.5); ALKALINE PHOSPHATASE 59 U/L (40-136); BILIRUBIN,TOTAL 0.3 MG/DL (0.1-1.0); BUN/CREATININE RATIO 19; CALCIUM 9.4 MG/DL (8.5-10.1); CARBON DIOXIDE 22 MMOL/L (21-32); CHLORIDE 105 MMOL/L (98-107); CREATININE SERUM 0.86 MG/DL (0.60-1.30); GFR ESTIMATED > 60; GLUCOSE 138 MG/DL (70-105); POTASSIUM 3.8 MMOL/L (3.6-5.0); SODIUM 139 MMOL/L (135-145); TOTAL PROTEIN 6.9 GM/DL (6.4-8.2)
--- NOTE | 2018-10-08 10:26 | Diagnostic Imaging Report ---
PROCEDURE: CT urinary tract, rule out kidney stone. TECHNIQUE: Multiple contiguous axial images were obtained through the abdomen and pelvis without the use of intravenous contrast. Auto Exposure Controls were utilized during the CT exam to meet ALARA standards for radiation dose reduction. INDICATION: Right flank pain and hematuria. Comparison is made to study of 06/29/2017. There is low-density in the liver indicating steatosis. Gallbladder surgically absent. No focal hepatic, pancreatic or splenic abnormalities identified. Adrenal glands are unremarkable. There are punctate nonobstructing calculus seen within both kidneys with mild right hydronephrosis and hydroureter related to an approximately 0.7 cm calculus at the right ureteropelvic junction. No free fluid is seen in the abdomen or pelvis. Appendix has a normal appearance. There are occasional calcified phleboliths seen in the pelvis, however, no bladder stone is detected. IMPRESSION: Tiny nonobstructing bilateral renal calculi with 0.7 cm obstructing stone at the right ureteropelvic junction resulting in mild right hydronephrosis. Dictated by: Dictated on workstation # [id number]
[2018-10-08] MEDS ORDERED: cefTRIAXone FOR IV USE 1,000 MG in WATER (STERILE) FOR INJECTION 10 ML IV ONE (11:15)
[2018-10-08] MEDS ORDERED: CIPR-225 PO (11:21)
--- NOTE | 2018-10-08 11:22 | ED Abdominal Pain ---
General Chief Complaint: Abdominal/GI Problems Stated Complaint: RIGHT FLANK PAIN Nursing Triage Note: Ambulatory to rm 3. Pt c/o R flank pain and painful urination. Pt reports it feels like a kidney stone is stuck. Pt reports being on fourth round of antibiotics and is taking AZO. Sepsis Screen: No Definite Risk Source of Information: Patient Exam Limitations: No Limitations History of Present Illness Date Seen by Provider: Oct 08, 2018 Time Seen by Provider: 08:30 Initial Comments This 48-year-old woman presents to emergency room with right flank pain and dysuria. She has been treated multiple times for urinary tract infection over the past several weeks. Symptoms have not really improved. She denies fever and is afebrile at present. She does have a history of renal stones but has not had an x-ray or CT scan during the episodes of pain and dysuria she has experienced recently. She is a patient of Rell Araya at the [facility] clinic in [place]. She has also seen Dr. Napoles in the past. Patient was most recently seen on Thursday at the [facility] in the urine culture was obtained. She was prescribed Cipro at that time. She has had 2 rounds of nitrofurantoin. She also was prescribed Bactrim but discontinued that because it caused arthralgia. Allergies and Home Medications Allergies Coded Allergies: diphenhydramine (Unverified Allergy, Mild, 07/22/17) Home Medications Ciprofloxacin HCl 500 Mg Tablet, 500 MG PO BID Prescribed by: NEO JOSEPH on 10/08/18 1121 Cyclobenzaprine HCl 5 Mg Tablet, 5 MG PO TID PRN for MUSCLE SPASMS, (Reported) Hydrochlorothiazide 25 Mg Tablet, 25 MG PO DAILY, (Reported) Lisinopril 10 Mg Tablet, 10 MG PO DAILY, (Reported) Potassium Citrate 15 Meq Tablet.er, 15 MEQ PO BID WITH MEALS, (Reported) Sertraline HCl 50 Mg Tablet, 50 MG PO DAILY, (Reported) Patient Home Medication List Home Medication List Reviewed: Yes Review of Systems Review of Systems Constitutional: no symptoms reported EENTM: No Symptoms Reported Respiratory: No Symptoms Reported Cardiovascular: No Symptoms Reported Gastrointestinal: See HPI Genitourinary: See HPI Musculoskeletal: no symptoms reported Skin: no symptoms reported Psychiatric/Neurological: No Symptoms Reported Endocrine: No Symptoms Reported Hematologic/Lymphatic: No Symptoms Reported Past Pbgznwc-Ymfuxi-Amcxno Hx Past Med/Social Hx: Reviewed and Corrections made Patient Social History Alcohol Use: Denies Use Recreational Drug Use: No Smoking Status: Current Everyday Smoker Type Used: Cigarettes 2nd Hand Smoke Exposure: Yes Recent Foreign Travel: No Contact w/Someone Who Travel: No Recent Infectious Disease Expo: No Recent Hopitalizations: No Physical Abuse: No Sexual Abuse: No Immunizations Up To Date Tetanus Booster (TDap): Unknown Date of Influenza Vaccine: May 28, 2017 Seasonal Allergies Seasonal Allergies: Yes Past Medical History Surgeries: Yes (KIDNEY STONE) Section, Gallbladder, Hysterectomy, Renal (lithotripsy) Respiratory: Yes Chronic Bronchitis Cardiac: Yes Hypertension Neurological: No 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 Sexually Transmitted Disease: No HIV/AIDS: No Genitourinary: Yes Kidney Stones Gastrointestinal: Yes Irritable Bowel Musculoskeletal: Yes Chronic Back Pain Endocrine: No Loss of Vision: Bilateral Hearing Impairment: Denies Cancer: No Psychosocial: Yes Anxiety, Depression Integumentary: No Blood Disorders: No Adverse Reaction/Blood Tranf: No (N/A) Family Medical History No Pertinent Family Hx Physical Exam Vital Signs Vital Signs - First Documented 10/08/18 08:35 Temp 98.1 Pulse 104 Resp 15 B/P (MAP) 125/85 (98) Pulse Ox 98 O2 Delivery Room Air Capillary Refill : Less Than 3 Seconds Height/Weight/BMI Height: 5'1.00" Weight: 210lbs. 0.0oz. 95.829751ot; 37.8 BMI Method:Stated General Appearance: WD/WN, no apparent distress HEENT: PERRL/EOMI, normal ENT inspection Neck: normal inspection Respiratory: lungs clear, normal breath sounds, no respiratory distress, no accessory muscle use Cardiovascular: regular rate, rhythm, no edema, no murmur Gastrointestinal: normal bowel sounds, soft, tenderness (Right flank) Extremities: normal inspection, no pedal edema Neurologic/Psychiatric: site coordinator II-XII nml as tested, no motor/sensory deficits, alert, normal mood/affect Skin: normal color, warm/dry Progress/Results/Core Measures Results/Orders Lab Results Laboratory Tests Test 10/08/18 08:50 10/08/18 09:39 Range/Units Urine Color YELLOW Urine Clarity CLEAR Urine pH 6.5 5-9 Urine Specific [place] 1.020 1.016-1.022 Urine Protein 1+ H NEGATIVE Urine Glucose (UA) NEGATIVE NEGATIVE Urine Ketones NEGATIVE NEGATIVE Urine Nitrite NEGATIVE NEGATIVE Urine Bilirubin NEGATIVE NEGATIVE Urine Urobilinogen NORMAL NORMAL MG/DL Urine Leukocyte Esterase 2+ H NEGATIVE Urine RBC (Auto) 1+ H NEGATIVE Urine RBC 0-2 /HPF Urine WBC 10-25 H /HPF Urine Squamous Epithelial Cells 10-25 H /HPF Urine Crystals NONE /LPF Urine Bacteria FEW H /HPF Urine Casts NONE /LPF Urine Mucus SMALL H /LPF Urine Culture Indicated YES White Blood Count 6.5 4.3-11.0 10^3/uL Red Blood Count 4.05 L 4.35-5.85 10^6/uL Hemoglobin 12.5 11.5-16.0 G/DL Hematocrit 38 35-52 % Mean Corpuscular Volume 94 80-99 FL Mean Corpuscular Hemoglobin 31 25-34 PG Mean Corpuscular Hemoglobin Concent 33 32-36 G/DL Red Cell Distribution Width 13.7 10.0-14.5 % Platelet Count 259 130-400 10^3/uL Mean Platelet Volume 11.1 H 7.4-10.4 FL Neutrophils (%) (Auto) 57 42-75 % Lymphocytes (%) (Auto) 32 12-44 % Monocytes (%) (Auto) 9 0-12 % Eosinophils (%) (Auto) 1 0-10 % Basophils (%) (Auto) 1 0-10 % Neutrophils # (Auto) 3.7 1.8-7.8 X 10^3 Lymphocytes # (Auto) 2.1 1.0-4.0 X 10^3 Monocytes # (Auto) 0.6 0.0-1.0 X 10^3 Eosinophils # (Auto) 0.1 0.0-0.3 10^3/uL Basophils # (Auto) 0.1 0.0-0.1 10^3/uL Sodium Level 139 135-145 MMOL/L Potassium Level 3.8 3.6-5.0 MMOL/L Chloride Level 105 98-107 MMOL/L Carbon Dioxide Level 22 21-32 MMOL/L Anion Gap 12 5-14 MMOL/L Blood Urea Nitrogen 16 7-18 MG/DL Creatinine 0.86 0.60-1.30 MG/DL Estimat Glomerular Filtration Rate > 60 BUN/Creatinine Ratio 19 Glucose Level 138 H 70-105 MG/DL Calcium Level 9.4 8.5-10.1 MG/DL Corrected Calcium 9.6 8.5-10.1 MG/DL Total Bilirubin 0.3 0.1-1.0 MG/DL Aspartate Amino Transf (AST/SGOT) 48 H 5-34 U/L Alanine Aminotransferase (ALT/SGPT) 75 H 0-55 U/L Alkaline Phosphatase 59 40-136 U/L C-Reactive Protein High Sensitivity 5.67 H 0.00-0.50 MG/DL Total Protein 6.9 6.4-8.2 GM/DL Albumin 3.7 3.2-4.5 GM/DL Micro Results Microbiology 10/08/18 Urine Culture - Final, Complete Lactobacillus species My Orders Orders - NEO CONNELLY MD Ua Culture If Indicated (10/08/18 08:33) Cbc With Automated Diff (10/08/18 09:03) Comprehensive Metabolic Panel (10/08/18 09:03) Hs C Reactive Protein (10/08/18 09:03) Saline Lock/Iv-Start (10/08/18 09:03) Ct Abd/Pelvis Wo(Kidney Stone) (10/08/18 09:03) Urine Culture (10/08/18 08:50) Abdomen/Kub 1view (10/08/18 11:01) Ceftriaxone For Iv Use (Rocephin For I (10/08/18 11:15) Vital Signs/I&O 10/08/18 10/08/18 08:35 11:58 Temp 98.1 98.1 Pulse 104 70 Resp 15 15 B/P (MAP) 125/85 (98) 120/77 (91) Pulse Ox 98 98 O2 Delivery Room Air Room Air Blood Pressure Mean: 98 Progress Progress Note : Progress Note Patient was found to have persistent evidence of urinary tract infection on UA. Culture results were obtained and she was found to have Klebsiella that was sensitive to Rocephin and Cipro. She was continued on Cipro and given an extension on her prescription. Rocephin was given in the ER. CT revealed a stone in the right UPJ. This was discussed with Dr. Napoles. He recommended follow-up on Thursday with additional KUB prior to the appointment. See discharge instructions. Diagnostic Imaging Diagonstic Imaging: CT Plain Films/CT/US/NM/MRI: abdomen, pelvis Comments NAME: JAIDEN ROMAN REC#: [id number] PT STATUS: DEP ER : 1970 PHYSICIAN: NEO CONNELLY MD ADMIT DATE: 10/08/18/ER Signed Date of Exam: 10/08/18 CT ABD/PELVIS WO(KIDNEY STONE) PROCEDURE: CT urinary tract, rule out kidney stone. TECHNIQUE: Multiple contiguous axial images were obtained through the abdomen and pelvis without the use of intravenous contrast. Auto Exposure Controls were utilized during the CT exam to meet ALARA standards for radiation dose reduction. INDICATION: Right flank pain and hematuria. Comparison is made to study of 06/29/2017. There is low-density in the liver indicating steatosis. Gallbladder surgically absent. No focal hepatic, pancreatic or splenic abnormalities identified. Adrenal glands are unremarkable. There are punctate nonobstructing calculus seen within both kidneys with mild right hydronephrosis and hydroureter related to an approximately 0.7 cm calculus at the right ureteropelvic junction. No free fluid is seen in the abdomen or pelvis. Appendix has a normal appearance. There are occasional calcified phleboliths seen in the pelvis, however, no bladder stone is detected. IMPRESSION: Tiny nonobstructing bilateral renal calculi with 0.7 cm obstructing stone at the right ureteropelvic junction resulting in mild right hydronephrosis. Dictated by: Dictated on workstation # [id number] Dict: 10/08/18 1016 Trans: 10/08/181706 Interpreted by: MARCY RILEY MD Electronically signed by: MARCY RILEY MD 10/08/181706 Reviewed: Reviewed by Ks Diagonstic Imaging: Xray Plain Films/CT/US/NM/MRI: abdomen, pelvis Comments NAME: JAIDEN ROMAN [facility] REC#: [id number] PT STATUS: DEP ER : 1970 PHYSICIAN: NEO CONNELLY MD ADMIT DATE: 10/08/18/ER Signed Date of Exam: 10/08/18 ABDOMEN/KUB 1VIEW INDICATION: Right flank pain. TIME OF EXAMINATION: 11:45 AM. FINDINGS: A calcific density in the right abdomen just lateral to the right transverse process of L2 is noted. This may represent the proximal ureteric calculus noted on the recent CT. No other urinary tract calculi are seen. The bowel gas pattern is unremarkable. Surgical clips in the gallbladder fossa are noted. IMPRESSION: Right abdominal calcification corresponding to the proximal ureteric calculus on the recent CT. No other abnormality is detected. Dictated by: Dictated on workstation # [id number] Dict: 10/08/18 1230 Trans: 10/08/18 1500 Interpreted by: CORBY RICHARDSON MD Electronically signed by: CORBY RICHARDSON MD 10/08/18 1500 Reviewed: Reviewed by Me Departure Impression Primary Impression: Right ureteral stone Additional Impression: Urinary tract infection Qualified Codes: N39.0 - Urinary tract infection, site not specified Disposition: HOME, SELF-CARE Condition: Improved Departure-Patient Inst. Decision time for Depature: 11:18 Referrals: STEVE BENAVIDES DO (PCP) Primary Care Physician RELL ARAYA (Family) Primary Care Physician Patient Instructions: Kidney Stone Diet, Kidney Stones (DC), Urinary Tract Infection, Adult (DC) Add. Discharge Instructions: Strain your urine and bring any stones collected with you to your follow-up appointment. Obtain an x-ray with the order provided before noon on October 11. You have an appointment with Dr. Napoles on October 11 at 1:00 p.m. Return to care if you have worsening symptoms. Continue taking Cipro as prescribed until otherwise directed by physician. All discharge instructions reviewed with patient and/or family. Voiced understanding. Scripts Ciprofloxacin HCl (Cipro) 500 Mg Tablet 500 MG PO BID, #20 TAB Prov: NEO CONNELLY MD 10/08/18 Work/School Note: Work Release Form Date Seen in the Emergency Department: Oct 08, 2018 Return to Work: Oct 13, 2018 Restrictions: No Restrictions Copy Copies To 1: ETHAN NAPOLES MD, JOSHUA T MD Oct 08, 2018 11:22
[2018-10-08 11:58] VITALS: BP 120/77
--- NOTE | 2018-10-08 12:51 | Diagnostic Imaging Report ---
INDICATION: Right flank pain. TIME OF EXAMINATION: 11:45 AM. FINDINGS: A calcific density in the right abdomen just lateral to the right transverse process of L2 is noted. This may represent the proximal ureteric calculus noted on the recent CT. No other urinary tract calculi are seen. The bowel gas pattern is unremarkable. Surgical clips in the gallbladder fossa are noted. IMPRESSION: Right abdominal calcification corresponding to the proximal ureteric calculus on the recent CT. No other abnormality is detected. Dictated by: Dictated on workstation # [id number]
== END 2018-10-08 11:58 | disposition home or self-care (01) ==
LOC: EDUNIT# 08:25 → ER 08:27
DX: N39.0 Urinary tract infection, site not specified (principal); N13.2 Hydronephrosis with renal and ureteral calculous obstruction; J42 Unspecified chronic bronchitis; I10 Essential (primary) hypertension; K58.9 Irritable bowel syndrome, unspecified; F32.9 Major depressive disorder, single episode, unspecified; F41.9 Anxiety disorder, unspecified; F17.210 Nicotine dependence, cigarettes, uncomplicated; Z90.710 Acquired absence of both cervix and uterus; Z88.8 Allergy status to other drugs, medicaments and biological substances; Z87.442 Personal history of urinary calculi
CPT/HCPCS: 36415; 74018; 74176; 80053; 81000; 85025; 86141; 87088

== ENCOUNTER → 2018-10-11 | Outpatient (CLI) | payer OTHER ==
[~2018-10-11] MED LIST changes: +CIPR-225 PO
--- NOTE | 2018-10-11 12:10 | Diagnostic Imaging Report ---
INDICATION: Right-sided stone. TIME OF EXAM: 11:38 AM Correlation is made with prior study from 10/08/2018. FINDINGS: Surgical clips seen in the gallbladder fossa are noted. Calcific density described on prior radiograph projects near the right transverse process of L3. This has progressed slightly down the right ureter since prior exam. No other radiopaque urinary tract calculi are seen. Bowel gas pattern is unremarkable. IMPRESSION: There has been slight movement of the right proximal ureteric calculus, when compared with study 3 days earlier. Dictated by: Dictated on workstation # [id number]
== END ==
LOC: RAD 11:23
PROVIDERS: ATTEND Family Medicine
DX: N20.1 Calculus of ureter (principal); Z98.890 Other specified postprocedural states
CPT/HCPCS: 74018

== ENCOUNTER 2018-10-15 12:10 | Outpatient (CLI) | payer OTHER ==
[~2018-10-15] VITALS: Ht 154.9 cm; Wt 95.3 kg
== END 2018-10-15 12:15 | disposition home or self-care (01) ==
LOC: PREOP 12:10
PROVIDERS: ATTEND Urology
DX: Z01.818 Encounter for other preprocedural examination (principal)

== ENCOUNTER 2018-10-19 08:14 | Day surgery (SDC) | payer OTHER ==
[~2018-10-19] VITALS: Ht 154.9 cm; Wt 91.3 kg
[2018-10-19] MEDS ORDERED: LACTATED RINGERS 1,000 ML IV PRN (08:33)
--- OUTSIDE RECORDS SUMMARY | 2018-10-19 08:33 | XMS REPORT | Continuity of Care Document ---
Author Organization Unknown Address Unknown Allergies Active Description Code Type Severity Reaction Onset Reported/Identified Relationship to Patient Clinical Status Yes Benadryl Drug Allergy N/A N/A 06/01/2014 Yes diphenhydramine [id number] Drug Allergy Mild N/A 07/22/2017 Yes sulfamethoxazole [id number] Drug Allergy Unknown arthralgia 10/11/2018 Yes trimethoprim [id number] Drug Allergy Unknown arthralgia 10/11/2018 Medications There is no data. Problems Date Dx Coded Attending Type Code Diagnosis Diagnosed By 01/19/2008 HUI ARAYA APRN V05.3 HEPATITIS VIRAL/ALL 01/19/2008 HUI ARAYA APRN V05.3 HEPATITIS VIRAL/ALL 01/19/2008 HUI ARAYA APRN R V05.3 HEPATITIS VIRAL/ALL 11/20/2008 HUI ARAYA APRN R 278.00 OBESITY 11/20/2008 HUI ARAYA APRN 466.0 ACUTE BRONCHITIS 11/20/2008 HUI ARAYA APRN 780.60 fever [as symptom] 11/20/2008 HUI ARAYA APRN 786.2 cough 11/20/2008 HUI ARAYA APRN 278.00 OBESITY 11/20/2008 ARAYA HUI GOMEZ 466.0 ACUTE BRONCHITIS 11/20/2008 ARAYA HUI GOMEZ 780.60 fever [as symptom] 11/20/2008 ARAYA HUI GOMEZ 786.2 cough 11/20/2008 ARAYA HUI GOMEZ 278.00 OBESITY 11/20/2008 ARAYA HUI GOMEZ R 466.0 ACUTE BRONCHITIS 11/20/2008 ARAYA HUI GOMEZ 780.60 fever [as symptom] 11/20/2008 ARAYA HUI GOMEZ 786.2 cough 01/24/2009 HUI ARAYA APRN 911.4 INSECT BITE NONVENOMOUS OF TRUNK WITHOUT INFECTION 01/24/2009 HUI ARAYA APRN 911.4 INSECT BITE NONVENOMOUS OF TRUNK WITHOUT INFECTION 01/24/2009 HUI ARAYA APRN 911.4 INSECT BITE NONVENOMOUS OF TRUNK WITHOUT [...] HYPERTENSION, BENIGN ESSENTIAL 06/01/2014 HUI ARAYA APRN 300.4 DYSTHYMIC DISORDER 06/01/2014 HUI ARAYA APRN 401.1 HYPERTENSION, BENIGN ESSENTIAL 06/07/2014 ETHAN NAPOLES MD Ot 592.1 06/07/2014 ETHAN NAPOLES MD Ot V67.09 08/28/2014 HUI ARAYA APRN 729.1 MYALGIA AND MYOSITIS UNSPECIFIED 10/05/2014 Ot [...] OF URETER 06/26/2017 ETHAN NAPOLES MD Ot V72.63 PRE-PROCEDURAL LABORATORY EXAMINATION 06/26/2017 ETHAN NAPOLES MD Ot V72.81 [id number] CARDIOVASCULAR 06/26/2017 ETHAN NAPOLES MD Ot V74.8 SCREEN-BACTERIAL DIS NEC 06/26/2017 ETHAN NAPOLES MD, Ot 592.0 CALCULUS OF KIDNEY 06/26/2017 ETHAN [...] MD Ot 592.0 CALCULUS OF KIDNEY 07/29/2017 DONY MD, ETHAN A Ot 592.1 CALCULUS OF URETER 07/29/2017 ETHAN NAPOLES MD Ot V72.63 PRE-PROCEDURAL LABORATORY EXAMINATION 07/29/2017 ETHAN NAPOLES MD Ot V72.81 [id number] CARDIOVASCULAR 07/29/2017 ETHAN NAPOLES MD Ot V74.8 [...] DEPRESSIVE DISORDER, SINGLE EPISOD 07/30/2017 ETHAN NAPOLES MD, Ot F41.9 ANXIETY DISORDER, UNSPECIFIED 07/30/2017 ETHAN NAPOLES MD, Ot G47.33 OBSTRUCTIVE SLEEP APNEA (ADULT) (PEDIATR 07/30/2017 ETHAN NAPOLES MD, Ot I10 ESSENTIAL (PRIMARY) HYPERTENSION 07/30/2017 ETHAN NAPOLES MD, Ot K21.9 GASTRO-ESOPHAGEAL REFLUX DISEASE WITHOUT 07/30/2017 ETHAN NAPOLES MD, Ot N32.81 OVERACTIVE BLADDER 07/30/2017 ETHAN NAPOLES MD, Ot N36.42 INTRINSIC SPHINCTER DEFICIENCY (ISD) 07/30/2017 ETHAN NAPOLES MD Ot N39.46 MIXED INCONTINENCE 07/30/2017 ETHAN NAPOLES MD Ot N81.10 CYSTOCELE, UNSPECIFIED 07/30/2017 ETHAN NAPOLES MD, Ot Z11.2 ENCOUNTER FOR SCREENING FOR OTHER BACTER 07/30/2017 ETHAN NAPOLES MD Ot Z68.37 BODY MASS INDEX (BMI) 37.0-37.9, ADULT 07/30/2017 ETHAN NAPOLES MD Ot Z79.899 OTHER MOLD HOISTER (CURRENT) DRUG THERAPY 07/30/2017 ETHAN NAPOLES MD Ot Z87.442 PERSONAL HISTORY OF URINARY CALCULI 07/31/2017 ETHAN NAPOLES MD Ot E66.9 OBESITY, UNSPECIFIED 07/31/2017 ETHAN NAPOLES MD Ot F17.210 NICOTINE DEPENDENCE, CIGARETTES, UNCOMPL 07/31/2017 ETHAN NAPOLES MD Ot F32.9 MAJOR DEPRESSIVE [...] INTRINSIC SPHINCTER DEFICIENCY (ISD) 07/31/2017 ETHAN NAPOLES MD Ot N39.46 MIXED INCONTINENCE 07/31/2017 ETHAN NAPOLES MD Ot N81.10 CYSTOCELE, UNSPECIFIED 07/31/2017 ETHAN NAPOLES MD, Ot Z11.2 ENCOUNTER FOR SCREENING FOR OTHER BACTER 07/31/2017 ETHAN NAPOLES MD, Ot Z68.37 BODY MASS INDEX (BMI) 37.0-37.9, ADULT 07/31/2017 ETHAN NAPOLES MD, Ot Z79.899 OTHER MOLD HOISTER (CURRENT) DRUG THERAPY 07/31/2017 ETHAN NAPOLES MD, Ot Z87.442 PERSONAL HISTORY OF URINARY CALCULI 08/12/2017 ETHAN NAPOLES MD Ot M54.9 DORSALGIA, UNSPECIFIED 08/12/2017 ETHAN NAPOLES MD, Ot N20.0 CALCULUS OF KIDNEY 08/12/2017 ETHAN NAPOLES MD Ot R91.8 OTHER NONSPECIFIC ABNORMAL FINDING OF DEB 08/12/2017 ETHAN NAPOLES MD, Ot Z90.49 ACQUIRED ABSENCE OF OTHER SPECIFIED PART 10/08/2018 ETHAN NAPOLES MD Ot 592.9 URINARY CALCULUS NOS 10/08/2018 ETHAN NAPOLES MD Ot 592.0 CALCULUS OF KIDNEY 10/08/2018 ETHAN NAPOLES MD, Ot 592.1 CALCULUS OF URETER 10/08/2018 ETHAN NAPOLES MD Ot V72.63 PRE-PROCEDURAL LABORATORY EXAMINATION 10/08/2018 ETHAN NAPOLES MD Ot V72.81 [id number] CARDIOVASCULAR 10/08/2018 ETHAN NAPOLES MD Ot V74.8 SCREEN-BACTERIAL DIS NEC 10/08/2018 ETHAN NAPOLES MD, Ot 592.0 CALCULUS OF KIDNEY 10/08/2018 ETHAN NAPOLES MD Ot V72.84 EXAM PRE-OPERATIVE NOS 10/08/2018 ETHAN NAPOLES MD Ot 793.19 OTHER NONSPECIFIC ABNORMAL FINDING OF DEB 10/08/2018 ETHAN NAPOLES MD Ot 592.0 CALCULUS OF KIDNEY 10/08/2018 ETHAN NAPOLES MD Ot 592.1 CALCULUS OF URETER 10/08/2018 ETHAN NAPOLES MD Ot V45.89 POSTSURGICAL STATES NEC 10/08/2018 ETHAN NAPOLES MD Ot 571.8 CHRONIC LIVER DIS NEC 10/08/2018 ETHAN NAPOLES MD Ot 592.0 CALCULUS OF KIDNEY 10/08/2018 ETHAN NAPOLES MD Ot 793.11 SOLITARY PULMONARY NODULE 10/08/2018 ETHAN NAPOLES MD Ot 592.1 CALCULUS OF URETER 10/08/2018 ETHAN NAPOLES MD Ot V67.09 SURGERY FOLLOW-UP, OTHER SURGERY 10/08/2018 ETHAN NAPOLES MD, Ot M54.9 DORSALGIA, UNSPECIFIED 10/08/2018 ETHAN NAPOLES MD Ot N20.0 CALCULUS OF KIDNEY 10/08/2018 ETHAN NAPOLES MD Ot R91.8 OTHER NONSPECIFIC ABNORMAL FINDING OF DEB 10/08/2018 ETHAN NAPOLES MD Ot Z90.49 ACQUIRED ABSENCE OF OTHER SPECIFIED PART 10/08/2018 NEO CONNELLY MD Ot F17.210 NICOTINE DEPENDENCE, CIGARETTES, UNCOMPL 10/08/2018 NEO CONNELLY MD, Ot F32.9 MAJOR DEPRESSIVE DISORDER, SINGLE EPISOD 10/08/2018 NEO CONNELLY MD, Ot F41.9 ANXIETY DISORDER, UNSPECIFIED 10/08/2018 NEO CONNELLY MD, Ot I10 ESSENTIAL (PRIMARY) HYPERTENSION 10/08/2018 NEO CONNELLY MD, Ot J42 UNSPECIFIED CHRONIC BRONCHITIS 10/08/2018 NEO CONNELLY MD, Ot K58.9 IRRITABLE BOWEL SYNDROME WITHOUT DIARRHE 10/08/2018 NEO CONNELLY MD, Ot N13.2 HYDRONEPHROSIS WITH RENAL AND URETERAL C 10/08/2018 NEO CONNELLY MD, Ot N39.0 URINARY TRACT INFECTION, SITE NOT SPECIF 10/08/2018 NEO CONNELLY MD, Ot R30.0 DYSURIA 10/08/2018 NEO CONNELLY MD, Ot Z87.442 PERSONAL HISTORY OF URINARY CALCULI 10/08/2018 NEO CONNELLY MD, Ot Z88.8 ALLERGY STATUS TO [facility] DRUG/MEDS/BIOL SUB 10/08/2018 NEO CONNELLY MD Ot Z90.710 ACQUIRED ABSENCE OF BOTH CERVIX AND UTER 10/11/2018 NEO CONNELLY MD Ot F17.210 NICOTINE DEPENDENCE, CIGARETTES, UNCOMPL 10/11/2018 ENO CONNELLY MD Ot F32.9 MAJOR DEPRESSIVE DISORDER, SINGLE EPISOD 10/11/2018 NEO CONNELLY MD Ot F41.9 ANXIETY DISORDER, UNSPECIFIED 10/11/2018 NEO CONNELLY MD Ot I10 ESSENTIAL (PRIMARY) HYPERTENSION 10/11/2018 NEO CONNELLY MD Ot J42 UNSPECIFIED CHRONIC BRONCHITIS 10/11/2018 NEO CONNELLY MD Ot K58.9 IRRITABLE BOWEL SYNDROME WITHOUT DIARRHE 10/11/2018 NEO CONNELLY MD Ot N13.2 HYDRONEPHROSIS WITH RENAL AND URETERAL C 10/11/2018 NEO CONNELLY MD Ot N39.0 URINARY TRACT INFECTION, SITE NOT SPECIF 10/11/2018 NEO CONNELLY MD Ot R30.0 DYSURIA 10/11/2018 NEO CONNELLY MD Ot Z87.442 PERSONAL HISTORY OF URINARY CALCULI 10/11/2018 NEO CONNELLY MD Ot Z88.8 ALLERGY STATUS TO [facility] DRUG/MEDS/BIOL SUB 10/11/2018 NEO CONNELLY MD Ot Z90.710 ACQUIRED ABSENCE OF BOTH CERVIX AND UTER 10/13/2018 NEO CONNELLY MD Ot N20.1 CALCULUS OF URETER 10/13/2018 NEO CONNELLY MD Ot Z98.890 OTHER SPECIFIED POSTPROCEDURAL STATES 10/14/2018 ENO CONNELLY MD Ot F17.210 NICOTINE DEPENDENCE, CIGARETTES, UNCOMPL 10/14/2018 NEO CONNELLY MD Ot F32.9 MAJOR DEPRESSIVE DISORDER, SINGLE EPISOD 10/14/2018 NEO CONNELLY MD Ot F41.9 ANXIETY DISORDER, UNSPECIFIED 10/14/2018 NEO CONNELLY MD Ot I10 ESSENTIAL (PRIMARY) HYPERTENSION 10/14/2018 NEO CONNELLY MD, Ot J42 UNSPECIFIED CHRONIC BRONCHITIS 10/14/2018 NEO CONNELLY MD, Ot K58.9 IRRITABLE BOWEL SYNDROME WITHOUT DIARRHE 10/14/2018 NEO CONNELLY MD, Ot N13.2 HYDRONEPHROSIS WITH RENAL AND URETERAL C 10/14/2018 NEO CONNELLY MD, Ot N39.0 URINARY TRACT INFECTION, SITE NOT SPECIF 10/14/2018 NEO CONNELLY MD, Ot R30.0 DYSURIA 10/14/2018 NEO CONNELLY MD, Ot Z87.442 PERSONAL HISTORY OF URINARY CALCULI 10/14/2018 NEO CONNELLY MD, Ot Z88.8 ALLERGY STATUS TO [facility] DRUG/MEDS/BIOL SUB 10/14/2018 NEO CONNELLY MD, Ot Z90.710 ACQUIRED ABSENCE OF BOTH CERVIX AND UTER 10/15/2018 ETHAN NAPOLES MD Ot Z01.818 ENCOUNTER FOR OTHER PREPROCEDURAL EXAMIN 10/15/2018 ETHAN NAPOLES MD, Ot Z01.818 ENCOUNTER FOR OTHER PREPROCEDURAL EXAMIN 10/15/2018 ETHAN NAPOLES MD Ot Z01.818 ENCOUNTER FOR OTHER PREPROCEDURAL EXAMIN 10/18/2018 ETHAN NAPOLES MD, Ot Z01.818 ENCOUNTER FOR OTHER PREPROCEDURAL EXAMIN Procedures There is no data. Results Test [...] 7-25 CREATININE 0.71 mg/dL 0.50-1.10 eGFR NON-AFR. GRE[place]DI[place] 102 mL/min/1.73m2 > OR=60 eGFR 118 mL/min/1.73m2 [...] 11.0 fL 7.5-12.5 ABSOLUTE NEUTROPHILS 2738 cells/uL 4716-5586 ABSOLUTE LYMPHOCYTES 2063 cells/uL 850-3900 ABSOLUTE MONOCYTES 432 cells/uL 200-950 ABSOLUTE EOSINOPHILS 119 cells/uL 15-500 ABSOLUTE BASOPHILS 49 cells/uL 0-200 NEUTROPHILS 50.7 % NRG LYMPHOCYTES 38.2 % NRG MONOCYTES 8.0 % NRG EOSINOPHILS 2.2 % NRG BASOPHILS 0.9 % NRG CMP - 09/21/17 08:03 GLUCOSE 133 mg/dL 65-99 UREA NITROGEN (BUN) 16 mg/dL 7-25 CREATININE 0.79 mg/dL 0.50-1.10 eGFR NON-AFR. GRE[place]DIAN 90 mL/min/1.73m2 > OR=60 eGFR 104 mL/min/1.73m2 [...] 56 U/L 10-35 ALT 98 U/L 6-29 Complete urinalysis with reflex to culture - 10/08/18 08:50 Urine color determination YELLOW NRG Urine clarity determination CLEAR NRG Urine pH measurement by test strip 6.5 5-9 Specific gravity of urine by test strip 1.020 1.016- 1.022 Urine protein assay by test strip, semi-quantitative 1+ NEGATIVE Urine glucose detection by automated test strip NEGATIVE NEGATIVE Erythrocytes detection in urine sediment by light microscopy 1+ NEGATIVE Urine ketones detection by automated test strip NEGATIVE NEGATIVE Urine nitrite detection by test strip NEGATIVE NEGATIVE Urine total bilirubin detection by test strip NEGATIVE NEGATIVE Urine urobilinogen measurement by automated test strip (mass/volume) NORMAL NORMAL Urine leukocyte esterase detection by dipstick 2+ NEGATIVE Automated urine sediment erythrocyte count by microscopy (number/high power field) [HPF] NRG Automated urine sediment leukocyte count by microscopy (number/high power field ) [HPF] NRG Bacteria detection in urine sediment by light microscopy FEW NRG Squamous epithelial cells detection in urine sediment by light microscopy 10-25 NRG Crystals detection in urine sediment by light microscopy NONE NRG Casts detection in urine sediment by light microscopy NONE NRG Mucus detection in urine sediment by light microscopy SMALL NRG Complete urinalysis with reflex to culture YES NRG Bacterial urine culture - 10/08/18 08:50 Bacterial urine culture [id number] NRG COLONY COUNT 40,000 CFU/ML NRG FTX;REPORTABLE SEE COMMENTS NRG Complete blood count (CBC) with automated white blood cell (WBC) differential - 10/08/18 09:39 Blood leukocytes automated count (number/volume) 6.5 10*3/uL 4.3-11.0 Blood erythrocytes automated count (number/volume) 4.05 10*6/uL 4.35-5.85 Venous blood hemoglobin measurement (mass/volume) 12.5 g/dL 11.5-16.0 Blood hematocrit (volume fraction) 38 % 35-52 Automated erythrocyte mean corpuscular volume 94 [foz_us] 80-99 Automated erythrocyte mean corpuscular hemoglobin (mass per erythrocyte) 31 pg 25-34 Automated erythrocyte mean corpuscular hemoglobin concentration measurement ( mass/volume) 33 g/dL 32-36 Automated erythrocyte distribution width ratio 13.7 % 10.0-14.5 Automated blood platelet count (count/volume) 259 10*3/uL 130-400 Automated blood platelet mean volume measurement 11.1 [foz_us] 7.4-10.4 Automated blood neutrophils/100 leukocytes 57 % 42-75 Automated blood lymphocytes/100 leukocytes 32 % 12-44 Blood monocytes/100 leukocytes 9 % 0-12 Automated blood eosinophils/100 leukocytes 1 % 0-10 Automated blood basophils/100 leukocytes 1 % 0-10 Blood neutrophils automated count (number/volume) 3.7 10*3 1.8-7.8 Blood lymphocytes automated count (number/volume) 2.1 10*3 1.0-4.0 Blood monocytes automated count (number/volume) 0.6 10*3 0.0-1.0 Automated eosinophil count 0.1 10*3/uL 0.0-0.3 Automated blood basophil count (count/volume) 0.1 10*3/uL 0.0-0.1 Comprehensive metabolic panel - 10/08/18 09:39 Serum or plasma sodium measurement (moles/volume) 139 mmol/L 135-145 Serum or plasma potassium measurement (moles/volume) 3.8 mmol/L 3.6-5.0 Serum or plasma chloride measurement (moles/volume) 105 mmol/L 98-107 Carbon dioxide 22 mmol/L 21-32 Serum or plasma anion gap determination (moles/volume) 12 mmol/L 5-14 Serum or plasma urea nitrogen measurement (mass/volume) 16 mg/dL 7-18 Serum or plasma creatinine measurement (mass/volume) 0.86 mg/dL 0.60-1.30 Serum or plasma urea nitrogen/creatinine mass ratio 19 NRG Serum or plasma creatinine measurement with calculation of estimated glomerular filtration rate > NRG Serum or plasma glucose measurement (mass/volume) 138 mg/dL 70-105 Serum or plasma calcium measurement (mass/volume) 9.4 mg/dL 8.5-10.1 Serum or plasma total bilirubin measurement (mass/volume) 0.3 mg/dL 0.1-1.0 Serum or plasma alkaline phosphatase measurement (enzymatic activity/volume) 59 U/L 40-136 Serum or plasma aspartate aminotransferase measurement (enzymatic activity/ volume) 48 U/L 5-34 Serum or plasma alanine aminotransferase measurement (enzymatic activity/volume ) 75 U/L 0-55 Serum or plasma protein measurement (mass/volume) 6.9 g/dL 6.4-8.2 Serum or plasma albumin measurement (mass/volume) 3.7 g/dL 3.2-4.5 CALCIUM CORRECTED 9.6 mg/dL 8.5-10.1 Serum or plasma C reactive protein measurement (mass/volume) - 10/08/18 09:39 Serum or plasma C reactive protein measurement (mass/volume) 5.67 mg /dL 0.00-0.50 Encounters ACCT No. Visit Date/Time Discharge Status Pt. Type Provider Facility Loc./Unit Complaint [id number] 08/28/2014 14:41:00 08/28/2014 23:59:59 [facility] Out[facility] HUI ARAYA APRN [id number] 06/01/2014 15:03:00 06/01/2014 23:59:59 [facility] Out[facility] HUI ARAYA APRN [id number] 01/24/2009 09:48:00 01/24/2009 23:59:59 [facility] Outpatient HUI ARAYA APRN [id number] 08/30/2018 18:00:00 08/30/2018 23:59:59 [facility] Outpatient HUI ARAYA APRN [facility] [id number] 09/21/2017 08:00:00 Document Registration [id number] 08/25/2017 08:00:00 Document Registration [id number] 10/15/2018 12:10:00 10/15/2018 12:15:00 DIS Outpatient ETHAN NAPOLES MD Via [facility] PREOP RIGHT PROXIMAL URETERAL STONE [id number] 10/11/2018 11:23:00 10/11/2018 23:59:59 CLS Outpatient NEO CONNELLY MD Via [facility] RAD UTERAL STONES [id number] 10/08/2018 08:27:00 10/08/2018 11:58:00 DIS Outpatient NEO CONNELLY MD Via [facility] ER RIGHT FLANK PAIN [id number] 07/29/2017 05:49:00 07/30/2017 11:15:00 DIS Outpatient ETHAN NAPOLES MD Via [facility] SDC MIXED INCONTINENCE, OVERACTIVE BLADDER,ISD [id number] 07/22/2017 05:40:00 07/22/2017 11:12:00 DIS Outpatient ETHAN NAPOLES MD [facility] PREOP MIXED INCONTINENCE, OVERACTIVE BLADDER [id number] 06/29/2017 16:24:00 06/29/2017 23:59:59 CLS Outpatient ETHAN NAPOLES MD Via [facility] RAD H/O STONES,BACK PAIN [id number] 03/04/2016 13:49:00 03/04/2016 16:43:00 DIS Emergency TERRA FOWLER [facility] ER LOW BACK PAIN/NAUSEA [id number] 10/25/2014 13:32:00 10/25/2014 15:45:00 DIS Emergency CANDELARIO DOWNS APRN Via [facility] ER LEFT SIDED PAIN, HX OF STONES [id number] 05/16/2014 14:01:00 05/16/2014 23:59:59 CLS Outpatient ETHAN NAPOLES MD Via [facility] RAD RT URETER STONE [id number] 05/05/2014 11:27:00 05/05/2014 23:59:59 CLS Outpatient ETHAN NAPOLES MD [facility] RAD LT FLANK PAIN [id number] 04/26/2014 06:08:00 04/26/2014 11:25:00 [facility] [id number] 04/25/2014 07:23:00 04/25/2014 23:59:59 CLS Outpatient ETHAN NAPOLES MD [facility] PREOP RIGHT URETERAL STONE [id number] 04/24/2014 13:57:00 04/24/2014 23:59:59 CLS Outpatient ETHAN NAPOLES MD [facility] RAD STONES [id number] 04/14/2014 12:14:00 04/14/2014 23:59:59 CLS Outpatient ETHAN NAPOLES MD [facility] RAD CHEST LEISON [id number] 04/11/2014 08:16:00 04/11/2014 13:40:00 DIS Outpatient ETHAN NAPOLES MD Via [facility] RIGHT RENAL AND URETERAL STONES [id number] 04/10/2014 14:20:00 04/10/2014 23:59:59 CLS Outpatient ETHAN NAPOLES MD Via [facility] PREOP RIGHT RENAL AND URETERAL STONES [id number] 04/10/2014 12:19:00 04/10/2014 23:59:59 CLS Outpatient ETHAN NAPOLES MD Via [facility] RAD STONES [id number] 04/09/2014 15:44:00 04/09/2014 18:01:00 DIS Emergency CANDELARIO DOWNS APRN Via [facility] ER KIDNEY STONE [id number] 10/19/2018 08:14:00 ACT Outpatient ETHAN NAPOLES MD Via [facility] RIGHT PROXIMAL URETERAL STONE [id number] 09/20/2014 10:21:00 Document Registration [id number] 10/26/2014 05:27:48 ACT Document Registration
--- NOTE | 2018-10-19 08:36 | NUR ---
patient states if she gets cold she gets hives
[2018-10-19 08:45] VITALS: BP 128/73
[2018-10-19] MEDS ORDERED: cefTRIAXone FOR IV USE 1,000 MG in WATER (STERILE) FOR INJECTION 10 ML IV ONE (08:45)
--- NOTE | 2018-10-19 09:16 | Progress Note-Pre Operative ---
Pre-Operative Progress Note H&P Reviewed The H&P was reviewed, patient examined and no changes noted. Date Seen by Provider: Oct 19, 2018 Time Seen by Provider: 09:15 Date H&P Reviewed: Oct 19, 2018 Time H&P Reviewed: 09:15 Pre-Operative Diagnosis: RT RENAL STONE ETHAN NAPOLES MD Oct 19, 2018 09:16
--- NOTE | 2018-10-19 09:35 | Progress Note-Post Operative ---
Post-Operative Progess Note Surgeon (s)/Space Engineer (s) Surgeon ETHAN NAPOLES MD Space Engineer: NONE Pre-Operative Diagnosis RT RENAL STONE Post-Operative Diagnosis SAME Procedure & Operative Findings Date of Procedure 10/19/18 Procedure Performed/Findings RT ESWL Anesthesia Type GENERAL Estimated Blood Loss Estimated blood loss (mL): NONE Specimens/Packing Specimens Removed NONE Packing: NONE ETHAN NAPOLES MD Oct 19, 2018 09:35
--- NOTE | 2018-10-19 09:36 | Discharge Inst-Urology ---
Discharge Inst-Urology Discharge Medications New, Converted, or Re-newed RX: RX on Chart Patient Instructions/Follow Up Plan Please make appointment to been seen in office in 2 weeks. KUB prior to it KUB on way home Post ESWL instructions Increase oral fluids for 48 hours and then as needed. Diet and Activity as tolerated. If questions or concerns contact your physician Or seek help at emergency department. ETHAN NAPOLES MD Oct 19, 2018 09:36
--- NOTE | 2018-10-19 09:41 | Diagnostic Imaging Report ---
INDICATION: Right ureteral stone. TECHNIQUE: 2 supine view of the abdomen 8:35 AM CORRELATION STUDY: 10/11/2018 FINDINGS: Approximately 5-6 mm slightly fragmented stone in the right upper quadrant just lateral to the L2 transverse process remains in place most consistent with the previously identified proximal ureteral stone. No additional renal stones are largely obscured by overlying bowel gas and stool. Cholecystectomy clips. IMPRESSION: 1. No appreciable change in positioning or appearance about the slightly fragmented proximal right ureteral stone. Dictated by: Dictated on workstation # [id number]
[2018-10-19] MEDS ORDERED: MIDAZOLAM 2 MG/2 ML (VERSED) VIAL ONE (10:49)
[2018-10-19] MEDS ORDERED: fentaNYL INJECTION 100 MCG/2 ML AMP ONE (10:49)
[2018-10-19] MEDS ORDERED: FUROSEMIDE 40 MG/4 ML INJ (LASIX) ONE (10:51)
[2018-10-19] MEDS ORDERED: proPOfol 200 MG/20 ML (DIPRIVAN) VIAL IV ONE (11:09)
[2018-10-19] MEDS ORDERED: DEXAMETHASONE 10 MG/ML (DECADRON) 1 ML VIAL ONE (11:09)
[2018-10-19] MEDS ORDERED: ONDANSETRON 4 MG/2 ML (SDV) Z0FRAN ONE (11:09)
[2018-10-19] MEDS ORDERED: LIDOCAINE PF 2% 5 ML (XYLOCAINE) VIAL ONE (11:09)
[2018-10-19] MEDS ORDERED: KETOROLAC 30 MG/ML VIAL ONE (11:09)
[2018-10-19] MEDS ORDERED: SEVOFLURANE (ULTANE) 15 ML INHAL SOLN ONE ×2 (11:09→11:44)
--- NOTE | 2018-10-19 11:27 | Anesthesia-General Post-Op ---
General Patient Condition Mental Status/LOC: Same as Preop Cardiovascular: Satisfactory Nausea/Vomiting: Absent Respiratory: Satisfactory Pain: Controlled Complications: Absent Post Op Complications Complications None Follow Up Care/Instructions Patient Instructions None needed. Anesthesia/Patient Condition Patient Condition Patient is doing well, no complaints, stable vital signs, no apparent adverse anesthesia problems. No complications reported per nursing. CATIA SOFIA CRNA Oct 19, 2018 11:27
[2018-10-19] MEDS ORDERED: morphine INJ 10 MG/ML 1ML (SYR OR VIAL) IVP ONE (11:45)
[2018-10-19] MEDS ORDERED: ONDANSETRON 4 MG/2 ML (SDV) Z0FRAN IVP PRN (11:45)
[2018-10-19 12:30] VITALS: BP 119/68
[2018-10-19] MEDS ORDERED: TAMS0.4C98 PO (12:42)
[2018-10-19] MEDS ORDERED: HYDR-3870 PO (12:42)
[2018-10-19] MEDS ORDERED: NITR-65 PO (12:42)
[2018-10-19 13:00] VITALS: BP 113/74
[2018-10-19 13:30] VITALS: BP 107/64
--- NOTE | 2018-10-19 13:54 | Diagnostic Imaging Report ---
EXAM: ABDOMEN/KUB 1VIEW INDICATION: P-O ESWL COMPARISON: Abdominal radiograph from earlier today at 8:33 a.m. FINDINGS: Nonspecific bowel gas pattern. Cholecystectomy clips. No radiopaque body is suspicious for nephrolithiasis. IMPRESSION: Interval resolution of the radiopaque body in the right abdomen consistent with a small renal stone. Dictated by: Dictated on workstation # [id number]
--- NOTE | 2018-10-19 15:24 | OPERATIVE REPORT ---
DATE OF SERVICE: 10/19/2018 PREOPERATIVE DIAGNOSIS: Right proximal ureteral stone. POSTOPERATIVE DIAGNOSIS: Right proximal ureteral stone. OPERATION PERFORMED: Right ESWL. SURGEON: Kiran Napoles MD. ANESTHESIA: General. COMPLICATIONS: None. DESCRIPTION OF PROCEDURE: Under satisfactory general anesthesia, the patient in supine position on the ESWL table, the right proximal ureteral stone was localized. Shocks were delivered at a kV of 4. A total of 2500 shocks completely fragmented the stone that was not visualized anymore. The patient received 40 mg of Lasix, 30 mg of Toradol IV at the end of procedure. She tolerated the procedure and anesthesia well and was sent to the recovery room in stable condition. Job ID: [id number] DocumentID: [id number] Dictated Date: 10/19/2018 11:17:13 Atmospheric Chemist Date: 10/19/2018 12:42:53 Dictated By: KIRAN NAPOLES MD
== END 2018-10-19 13:45 | disposition home or self-care (01) ==
LOC: SDC 08:14
PROVIDERS: ATTEND Urology
DX: N20.1 Calculus of ureter (principal); I10 Essential (primary) hypertension; F17.210 Nicotine dependence, cigarettes, uncomplicated; F32.9 Major depressive disorder, single episode, unspecified; Z79.899 Other long term (current) drug therapy
CPT/HCPCS: 74018; 87081

== ENCOUNTER → 2018-11-02 | Outpatient (CLI) | payer OTHER ==
[~2018-11-02] MED LIST changes: +HYDR-3870 PO; +NITR-65 PO; +TAMS0.4C98 PO
--- NOTE | 2018-11-02 14:51 | Diagnostic Imaging Report ---
INDICATION: Right ureteral stone, status post lithotripsy. TIME OF EXAM 12:50 PM CORRELATION is made with prior abdominal radiograph from 10/19/2018. FINDINGS: Surgical clips in the gallbladder fossa are again noted. Bowel gas pattern is nonobstructed. No definite radiopaque urinary tract calculi are seen. Calcification in the pelvis appears to be stable and may represent phleboliths. IMPRESSION: Stable KUB. No definite radiopaque urinary tract calculi are detected. Dictated by: Dictated on workstation # [id number]
== END ==
LOC: RAD 12:20
PROVIDERS: ATTEND Urology
DX: N20.1 Calculus of ureter (principal); Z98.890 Other specified postprocedural states
CPT/HCPCS: 74018